=== PATIENT | female | born 1970 | race Caucasian/White ===

== ENCOUNTER 2017-10-30 19:09 | Emergency (ER) | payer OTHER ==
[~2017-10-30] VITALS: Ht 170.2 cm; Wt 110.2 kg
[~2017-10-30 19:09] MED LIST: ESCITALOPRAM OX10 MG PO; FISH OIL 1,0001 EAC1 PO; FISH OIL 1,0001 EAC3 PO; HUMALOG100 UNITS/; IBUPROFEN800 MG PO; LEVEMIR FL100 UNIT/1 SUB-Q; LEVEMIR FL100 UNIT/2 SUB-Q; LISINOPRIL10 MG PO; MAGNESIUM250 M1 PO; METFORMIN HCL1000 MG PO; NORCO 10-325 T1 EACH PO; NORCO 5-325 TA1 EACH PO; NOVOLOG FL100 UNIT/1 SUB-Q; OMEPRAZOLE20 MG PO; PREVACID15 M1; SIMVASTATIN40 MG PO; ULTRAM50 MG PO; ZOCOR20 MG
[2017-10-30] MEDS ORDERED: AFREZZA1 EAC1 (19:33)
== END 2017-10-30 21:31 | disposition home or self-care (01) ==
LOC: ED 19:09
DX: G43.909 Migraine, unspecified, not intractable, without status migrainosus (principal); E11.9 Type 2 diabetes mellitus without complications; Z88.0 Allergy status to penicillin; Z88.8 Allergy status to other drugs, medicaments and biological substances; Z79.899 Other long term (current) drug therapy; Z79.4 Long term (current) use of insulin
CPT/HCPCS: 96374; 96375; 99282; J1200; J1885; J7030

== ENCOUNTER 2023-05-28 05:24 | Inpatient (IN) | payer OTHER ==
[~2023-05-28] VITALS: Ht 170.2 cm; Wt 100.7 kg
[2023-05-28] VITALS (17 sets, daily range): BP systolic 115–152; BP diastolic 56–69
[~2023-05-28 05:24] MED LIST changes: +AFREZZA1 EAC1; -OMEPRAZOLE20 MG PO; +PRILOSEC OTC20 MG PO
[2023-05-28 05:49] LABS: BASOPHILS 1.2 % (0-2); EOSINOPHILS 0.4 % (0-6); HEMATOCRIT 43.1 % (35.0-50.0); HEMOGLOBIN 12.9 g/dL (12.0-18.0); LYMPHOCYTES 3.6 % (24-44); MCH 27.5 (27-36); MCV 91.8 fl (81-99); MONOCYTES 9.2 % (0-12); NEUTROPHILS 85.6 % (39-80); PLATELET COUNT 222 K/uL (140-440); RDW 17.5 (10.5-15.0)
[2023-05-28 05:53] LABS: BILIRUBIN, URINE POSITIVE (negative); BLOOD/HGB, URINE MODERATE (Negative); KETONE, URINE >=80 (Negative); LEUK ESTERASE, URINE NEGATIVE (negative); NITRITE, URINE NEGATIVE (negative); PH, URINE 5.5 (5-7)
[2023-05-28 06:01] LABS: ALBUMIN 2.5 g/dL (3.4-5.0); ALBUMIN/GLOBULIN RATIO 0.47 (1.1-2.4); ALCOHOL, MEDICAL <3 ng/dL (<3); ALKALINE PHOSPHATASE 127 U/L (46-116); ALT (SGPT) 21 U/L (14-59); AST (SGOT) 16 U/L (15-37); BILIRUBIN, TOTAL 0.7 ng/dL (0.2-1.0); BUN/CREATININE RATIO 28.94 (6.0-28.6); CALCIUM 9.6 mg/dL (8.5-10.1); CHLORIDE 95 mmol/L (98-107); GLOMERULAR FILTRATION RATE,EST 31 mL/min (>60); PROTEIN, TOTAL 7.8 g/dL (6.4-8.2); UREA NITROGEN 55 mg/dL (7-18)
[2023-05-28 06:05] LABS: EPITHELIAL CELLS, URINE SQUAMOUS 1+ /lpf (0-1+)
[2023-05-28 06:06] LABS: BACTERIA, URINE RARE /hpf (negative); CASTS, URINE GRANULAR 1+ \\lpf; CRYSTALS, URINE NONE SEEN (0-1+); RED BLOOD CELLS, URINE 0-1 /hpf (0-5); REFLEX CULTURE, URINE No (No); WHITE BLOOD CELLS, URINE 0-1 /HPF (0-5)
[2023-05-28 06:07] LABS: AMPHETAMINES, URINE NEGATIVE (NEGATIVE); BARBITURATES, URINE NEGATIVE (NEGATIVE); BENZODIAZEPINE, URINE NEGATIVE (NEGATIVE); BUPRENORPHINE, URINE NEGATIVE (NEGATIVE); CANNABINOID, URINE NEGATIVE (NEGATIVE); COCAINE, URINE NEGATIVE (NEGATIVE); ECSTASY, URINE NEGATIVE (NEGATIVE); FENTANYL, URINE NEGATIVE (NEGATIVE); METHADONE, URINE NEGATIVE (NEGATIVE); OPIATES, URINE NEGATIVE (NEGATIVE); OXYCODONE, URINE NEGATIVE (NEGATIVE); PHENCYCLIDINE, URINE NEGATIVE (NEGATIVE)
[2023-05-28 06:12] LABS: CARBON DIOXIDE <5 mmol/L (21-32)
[2023-05-28 07:20] LABS: BUN/CREATININE RATIO 29.83 (6.0-28.6); CREATININE, SERUM 1.81 mg/dL (0.55-1.02)
[2023-05-28 07:34] LABS: INFLUENZA B NAA NEGATIVE (NEGATIVE); RESPIRATORY SYNCYTIAL VIR NAA NEGATIVE (NEGATIVE)
[2023-05-28 09:36] LABS: BASE EXCESS, BLOOD GAS -24.6 mmol/L (-2-2); HCO3, BLOOD GAS 5.1 mmol/L (22-26); O2 SATURATION, BLOOD GAS 98.8 % (95.0-100.0); PCO2, BLOOD GAS 20.1 mmHg (35-45); PH, BLOOD GAS 7.01 (7.35-7.45); PO2, BLOOD GAS 101 mmHg (80-100); TOTAL CO2, BLOOD GAS 5.8
[2023-05-28 09:38] LABS: OXYGEN RECEIVED, BLOOD GAS RA
--- NOTE | 2023-05-28 10:19 | NUR ---
PATIENT ARRIVES AT 0902 FOR DKA. PT PULLED TO BED X3 PERSON ASSIST. PT'S SIGNIFICANT OTHER, ZARINA, ARRIVES WITH PATIENT. PATIENT ON INSULIN GTT AT 8.8 UPON ARRIVAL AND MOST RECENT CBG WAS 451. PT IS RESPONDING TO QUESTIONS. PATIENT STATES SHE IS THIRSTY. MOUTH SWAB GIVEN, AND THEN PATIENT WAS AWAKE ENOUGH TO DRINK KAYEXELATE. PT WAS SAT UP ALL THE WAY AND DID WELL WITH DRINKING THIS, WELL SOME WATER. DR. CANAS UPDATED. ABG DRAWN PER RT. PH STILL LOW, AT 7.[address] CANAS NOTIFIED OF THIS. ORDER REC'D TO START PATIENT ON A SODIUM BICARB GTT AT 125 ML/HR. PT WAS ALSO GIVEN 1 AMP OF SODIUM BICARB BY THIS RN. GALE DRAINING CLEAR YELLOW URINE. CBG AT 1010 WAS 509, AND INSULIN GTT TURNED UP TO 10.2. PLAN OF CARE DISCUSSED. PT ORIENTED TO ROOM AND CALL LIGHT. PT'S S/O LEAVES FOR NOW BUT STATES HE WILL RETURN LATER.
[2023-05-28 12:09] LABS: PH, VENOUS 7.141 (7.31-7.41)
[2023-05-28 12:25] LABS: ANION GAP 25.9 (7-21); BUN/CREATININE RATIO 32.05 (6.0-28.6); CALCIUM 9.1 mg/dL (8.5-10.1); CREATININE, SERUM 1.56 mg/dL (0.55-1.02); POTASSIUM 3.9 mmol/L (3.5-5.1)
--- NOTE | 2023-05-28 12:51 | NUR ---
PATIENT'S S/O BACK IN ROOM AT THIS TIME. INSULIN GTT REMAINS ON AT 9 UNITS/HR AND IVF AT 125 ML/HR. 1200 VBG AND BMP VALUES ARE BACK. DR. CANAS TO BE UPDATED.
--- NOTE | 2023-05-28 13:10 | NUR ---
CCU ROUNDS. PT IN BED WITH EYES CLOSED. APPEARED TO BE SLEEPING. DID NOT DISTURB. PROVIDED SILENT PRAYER.
--- NOTE | 2023-05-28 13:19 | NUR ---
CCU ROUNDS. MALE CHURCH HISTORY TEACHER IN ROOM. FACILITATED STORY TELLING. LISTENED EMPATHETICALLY. PROVIDED SUPPORTIVE PRESENCE. PROVIDED HOSPITALITY.
--- NOTE | 2023-05-28 13:30 | NUR ---
Spoke with Jose and her SO, Jose Zaragoza. Pt has a history of DM. She uses diabetic supplies, but does not need any. She does not use DME. They do not have financial issues. SO does the cooking,clean, shopping, and household tasks. They do not have financial issues and plan for dc to home when cleared medically. I will follow up tomorrow.
[2023-05-28] MEDS ORDERED: GLIPIZIDE ER10 MG PO (14:31)
[2023-05-28] MEDS ORDERED: METFORMIN HCL500 M1 PO (14:32)
--- NOTE | 2023-05-28 14:32 | NUR ---
PATIENT RESTING AT THIS TIME, EYES CLOSED AND APPEARS IN NO ACUTE DISTRESS. RR EVEN AND UNLABORED AT 25. HR 110 CURRENTLY. INSULIN GTT NOW AT 6.3 UNITS/HR. GALE EMPTIED FOR 775 ML YELLOW URINE. PT'S S/O YUMIKO ASLEEP ON COUCH. WILL CONTINUE TO MONITOR WITH HOURLY BLOOD SUGARS.
[2023-05-28] MEDS ORDERED: BASAGLAR K100 UNIT/1 SUB-Q (14:33)
[2023-05-28] MEDS ORDERED: HUMALOG KW200 UNIT/1 SUB-Q (14:33)
[2023-05-28 15:15] LABS: ANION GAP 23.4 (7-21); CALCIUM 8.7 mg/dL (8.5-10.1); CREATININE, SERUM 1.4 mg/dL (0.55-1.02); POTASSIUM 3.4 mmol/L (3.5-5.1)
--- NOTE | 2023-05-28 15:44 | NUR ---
DR. CANAS NOTIFIED OF POTASSIUM LEVEL OF 3.4 AND IV POTASSIUM ORDERED FOR REPLACMENT. WILL START SOON POSSIBLE.
--- NOTE | 2023-05-28 16:44 | EKG ---
[facility] [address] [place] [address] Signed Sinus tachycardia Otherwise normal ECG When compared with ECG of 08-NOV-2016 14:37, Nonspecific T wave abnormality now evident in Inferior leads Confirmed by SISI CANAS MD ([id number]) on 05/28/2023 4:44:34 PM Electronically Signed By: SISI CANAS 05/28/23 1644 PATIENT NAME: BRENDAN COSTA MACY Electrocardiogram DATE OF : 70 PHYSICIAN: SISI CANAS REPORT #: [id number] REPORT IS CONFIDENTIAL AND NOT TO BE RELEASED WITHOUT AUTHORIZATION
--- NOTE | 2023-05-28 18:41 | NUR ---
DR. GRANADOS IN ROOM TO SEE PATIENT AT THIS TIME. PT REMAINS ON INSULIN GTT AT 10.5 UNITS/HR.
[2023-05-28 19:16] LABS: ANION GAP 19.1 (7-21); BUN/CREATININE RATIO 32.35 (6.0-28.6); CALCIUM 8.7 mg/dL (8.5-10.1); CREATININE, SERUM 1.36 mg/dL (0.55-1.02); POTASSIUM 3.1 mmol/L (3.5-5.1)
--- NOTE | 2023-05-28 19:30 | NUR ---
REPORT RECEIVED AND CARE ASSUMED FROM LUIS MEEHAN.
--- NOTE | 2023-05-28 20:00 | NUR ---
DR CANAS NOTIFIED FOR PT LAB RESULTS FOR CO2, ANION GAP, AND POTASSIUM. VERBAL ORDERS RECEIVED, READ BACK AND ENTERED.
--- NOTE | 2023-05-28 20:00 | NUR ---
SHIFT ASSESSMENT COMPLETE. SEE [email or web address] FOR DETAILS. PT RESTING IN BED, AWAKENED TO VOICE. PT DENIES NEEDS. INSULIN AND BICARB GTT'S INFUSING PER MD ORDER. K+ REPLACEMENT INFUSING PER ORDER. GALE PATENT AND DRAINING. VSS AND NAD NOTED VIA DIRECT OBS, PT STATEMENT AND CONTINUOUS MONITOR.
--- NOTE | 2023-05-28 20:41 | NUR ---
DR CANAS AT BEDSIDE FOR PT ASSESSMENT.
--- NOTE | 2023-05-28 22:20 | NUR ---
PT RESTING IN BED, DROWSY BUT AWAKENS TO NAME. PT DENIES PAIN OR NEEDS AT THIS TIME. Q1 CBG'S WITH APPROPRIATE INSULIN GTT TITRATION PER PROTOCOL COMPLETED. GALE CATHETER PATENT AND DRAINING. BED IN LOW, LOCKED POSITION. CALL LIGHT IN REACH. NAD NOTED VIA PT STATEMENT AND DIRECT PT OBS.
[2023-05-28 23:32] LABS: ANION GAP 18.2 (7-21); BUN/CREATININE RATIO 31.49 (6.0-28.6); CALCIUM 8.8 mg/dL (8.5-10.1); CREATININE, SERUM 1.27 mg/dL (0.55-1.02); POTASSIUM 3.2 mmol/L (3.5-5.1)
--- NOTE | 2023-05-28 23:38 | NUR ---
DR CANAS NOTIFIED FOR PT K+ RESULT OF 3.2 PER HIS REQUEST.
[2023-05-29] VITALS (16 sets, daily range): BP systolic 130–161; BP diastolic 51–81
--- NOTE | 2023-05-29 00:20 | NUR ---
SHIFT ASSESSMENT COMPLETE. SEE [facility] FOR DETAILS. PT REMAINS DROWSY. DENIES NEEDS. DKA PROTOCOL IN PLACE WITH INSULIN GTT INFUSING. BICARB GTT AND K+ REPLACEMENT INFUSING PER EMAR. BED IN LOW, LOCKED POSITION WITH CALL LIGHT IN REACH. PT ORAL TEMP 99.6, INFECTION TO L FOOT PRESENT. L FOOT DRSG PLACED BY DR DARWIN RAMOS. NAD NOTED VIA DIRECT OBS AND CONTINUAL MONITOR.
--- NOTE | 2023-05-29 02:00 | NUR ---
PT RESTING IN BED, REMAINS DROWSY. LINES/DRAINS PATENT. INSULIN GTT INFUSING PER PROTOCOL WITH Q1 CBG IN PROCESS. NAD DISTRESS NOTD VIA DIRECT OBS AND CONTINUOUS MONITOR.
--- NOTE | 2023-05-29 04:18 | NUR ---
SHIFT ASSESSMENT COMPLETE SEE [facility]. NO PT CHANGES DURING SHIF, PT DENIES PAIN AND NEEDS AT THIS TIME. L FOOT DRSG CDI. NAD NOTED VIA DIRECT OBS AND CONTINUOUS MONITOR.
[2023-05-29 05:41] LABS: HEMATOCRIT 32.8 % (35.0-50.0); HEMOGLOBIN 11.2 g/dL (12.0-18.0); MCH 27.5 (27-36); MCHC 34.1 g/dl (30-36); MCV 80.7 fl (81-99); PLATELET COUNT 174 K/uL (140-440); RBC 4.07 M/ul (4.3-5.7); RDW 15.7 (10.5-15.0)
[2023-05-29 05:54] LABS: BANDS, MANUAL DIFF 34; LYMPHOCYTES, MANUAL DIFF 16; MONOCYTES, MANUAL DIFF 3; NEUTROPHILS, MANUAL DIFF 47
[2023-05-29 05:59] LABS: ALBUMIN 1.2 g/dL (3.4-5.0); ALBUMIN/GLOBULIN RATIO 0.24 (1.1-2.4); ANION GAP 16.9 (7-21); BILIRUBIN, TOTAL 0.4 ng/dL (0.2-1.0); BUN/CREATININE RATIO 29.41 (6.0-28.6); CALCIUM 8.3 mg/dL (8.5-10.1); CREATININE, SERUM 1.19 mg/dL (0.55-1.02); POTASSIUM 2.9 mmol/L (3.5-5.1); PROTEIN, TOTAL 6.1 g/dL (6.4-8.2)
--- NOTE | 2023-05-29 06:12 | NUR ---
PT REMAINS DROWSY. ANSWERS TO VOICE. PT DENIES NEEDS. GALE CATHETER PATENT AND DRAINING. PIV PATENT WITH INSULIN GTT INFUSING PER PROTOCOL. BED IN LOW, LOCKED POSITION. PT DENIES NEEDS. NAD NOTED VIA CONTINUOUS MONITOR AND DIRECT OBS.
--- NOTE | 2023-05-29 06:27 | NUR ---
DR CANAS NOTIFIED FOR PT K+ OF 2.9. TELEPHONE ORDERS RECEIVED, READ BACK AND ENTERED INTO bContext.
--- NOTE | 2023-05-29 07:24 | NUR ---
report from Vandana rn, pt quiet, resp 22, call light in reach, dr willoughby here at this time.
--- NOTE | 2023-05-29 08:46 | NUR ---
in for assessment and meds, stopped iv insulin now q2 hr checks next at 10 am. iv 1/2 ns@125, pt is very sleepy/somulent, rn opened curtains and tried to wake pt she keeps eyes closed and will eventually open with strong encouragement yet closes. when asked her birthday she states yes, not the date, repeatedly, pt does not know where she is or why she is here, slow to answer if at all. in room - she does not answer him either. repositioned pt. helped to wake her more. call light in reach.
--- NOTE | 2023-05-29 09:00 | NUR ---
DR CANAS IN ROOM WITH RN AND PT NEW ORDERS FOR LABS TODAY AND AM, ENC PT TO WAKE AND PARTICIPATE. AWARE OF PT FLAT AFFECT AND RECENT BS. 156. NEXT BS AT 10 AM.
--- NOTE | 2023-05-29 10:15 | NUR ---
Attempted to speak with Jose. She opens her eyes but does not respond at this time.
--- NOTE | 2023-05-29 11:07 | NUR ---
CCU ROUNDS. PT APPEARED TO BE SLEEPING. DID NOT DISTURB. PROVIDED SILENT PRYAER.
[2023-05-29] MEDS ORDERED: PREGABALIN75 MG PO (12:03)
[2023-05-29] MEDS ORDERED: ESCITALOPRAM OX10 MG PO (12:04)
[2023-05-29] MEDS ORDERED: ATORVASTATIN CA40 MG PO (12:04)
--- NOTE | 2023-05-29 12:54 | NUR ---
PATIENT AWAKE IN BED, FAMILY AT BEDSIDE AND ASSISTING WITH LUNCH. VITALS AND I&OS CHARTED. RN NOTIFIED OF TEMP. CALL LIGHT IN EASY REACH, NO OTHER NEEDS AT THIS TIME
--- NOTE | 2023-05-29 12:55 | NUR ---
PT HERE RN GAVE UPDATE, PT HOB UP FOR MEAL, PT HAS 100.3 AXILARRY TEMP - WILL RECHECK AFTER REPOSTITION, CALL TO DR CANAS TO DISCUSS TREND IN BS INCREASE - NEW ORDER FOR LANTUS NOW TAKEN - RECHECK AX TEMP 98.4, IN ROOM.
--- NOTE | 2023-05-29 14:30 | NUR ---
dr willoughby here notified of positive bc x1 iv abx ordered. labs checked.
[2023-05-29 15:02] LABS: ANION GAP 18.1 (7-21); BUN/CREATININE RATIO 25.64 (6.0-28.6); CALCIUM 8.2 mg/dL (8.5-10.1); CREATININE, SERUM 1.17 mg/dL (0.55-1.02); POTASSIUM 3.1 mmol/L (3.5-5.1)
--- NOTE | 2023-05-29 15:23 | NUR ---
RN SPOKE WITH DR CANAS ABOUT HOME MED FOR PAIN AND DEPRESSION - RESTARTED NEW ORDER PER MED LIST FROM PCP AND DR CANAS VO.
--- NOTE | 2023-05-29 16:15 | NUR ---
pt continues to be somulent, when aroused will open eyes briefly - will not squeeze hand or state name. turned to left side, repositioned, abx started, ceja draining clear yellow urine, bs checked 325 - insulin given.
--- NOTE | 2023-05-29 16:22 | NUR ---
dr westbrook here for left foot dressing change - pt continues to be somunlent
--- NOTE | 2023-05-29 18:33 | NUR ---
DR CANAS HERE - RN ADDRESSED CONCERNS WITH LABS, AND PT SOMULENCE, NEW ORDERS ENTERED BY RN, INSULIN WILL BE RESTARTED. COVID SWAB DRAWN BY RT - ADD ON MG AND PHOS LABS, RT WILL PLACE END TIDAL CO2 MONITOR - PT CONT. TO BE SOMULENT AND ONLY OPENS EYES. NOT RESPONSIVE AND NPO.
[2023-05-29 18:44] LABS: MAGNESIUM 2.1 mg/dL (1.8-2.4)
[2023-05-29 18:46] LABS: PHOSPHORUS, INORGANIC 1.1 mg/dL (2.5-4.9)
[2023-05-29 18:55] LABS: BASE EXCESS, BLOOD GAS -2.7 mmol/L (-2-2); HCO3, BLOOD GAS 19.9 mmol/L (22-26); O2 SATURATION, BLOOD GAS 97.3 % (95.0-100.0); PCO2, BLOOD GAS 27.4 mmHg (35-45); PH, BLOOD GAS 7.47 (7.35-7.45); PO2, BLOOD GAS 69 mmHg (80-100); TOTAL CO2, BLOOD GAS 20.7
--- NOTE | 2023-05-29 19:04 | NUR ---
COVID SWAB COLLECTED SENT TO THE LAB
[2023-05-29 19:34] LABS: INFLUENZA B NAA NEGATIVE (NEGATIVE); RESPIRATORY SYNCYTIAL VIR NAA NEGATIVE (NEGATIVE)
--- NOTE | 2023-05-29 19:50 | NUR ---
DR CANAS HERE - UPDATE ON PT LABS, CONT.INSULIN DRIP ON, DIETITIAN THERAPEUTIC CALLED TO MIX K PHOS. SEE ORDERS - PT CONTINUES TO BE SOMULENT. NO CHANGE.
--- NOTE | 2023-05-29 20:00 | NUR ---
SBAR REPORT RECEIVED FROM LUIS JOHNSON. PATIENT IGOR IS FOUND TO BE DROWSY, ABLE TO ANSWER SIMPLE YES/NO QUESTIONS APPROPRIATELY, OPENS EYES TO COMMAND, INDWELLING GALE CATHETER REMAINS PATENT AND INTACT. INSULIN GTT REMAINS IN USE. 1HR CBG CHECKS UNTIL PATIENT REACHES 200. AT THAT POINT SHE WILL TRANSITION TO Q2. IF SHE REMAINS STABLE AND UNDER 200 SHE WILL BE TRANSITIONED TO Q4 IN THE AM FOR DAY SHIFT. ROUNDS WITH MD CANAS COMPLETE. NO FURTHER NEEDS AT THIS TIME
--- NOTE | 2023-05-29 22:45 | NUR ---
DR CANAS NOTIFIED FOR PT SBP INCREASING BP. ORDERS RECEIVED, READ BACK AND ENTERED INTO Preggers.
[2023-05-29 23:48] LABS: ANION GAP 14.7 (7-21); CREATININE, SERUM 0.92 mg/dL (0.55-1.02); POTASSIUM 2.7 mmol/L (3.5-5.1)
[2023-05-29 23:49] LABS: PHOSPHORUS, INORGANIC 1.1 mg/dL (2.5-4.9)
[2023-05-30] VITALS (21 sets, daily range): BP systolic 119–157; BP diastolic 49–99
--- NOTE | 2023-05-30 01:18 | NUR ---
PATIENT IGOR IS NOTED TO BE DROWSY. ABLE TO ANSWER QUESTIONS MORE FREQUENTLY AND TAKE PO MEDICATIONS. INDWELLING GALE CATHETER REMAINS PATENT AND INTACT. INSULIN GTT REMAINS IN USE. SHE DENIES ANY NEEDS OR DESIRES AT THIS MOMENT. WARM BLANKETS, REPOSITION, AND FRESH LINENS PROVIDED.
--- NOTE | 2023-05-30 03:33 | NUR ---
PATIENT IGOR IS LYING ON LEFT SIDE. INDEPENDENT MOBILITY. INDWELLING GALE CATHETER PATENT AND IN USE. INSULIN GTT IN USE.
--- NOTE | 2023-05-30 04:08 | NUR ---
CURRENT CBG 188. PER VERBAL ORDERS D5 0.45NS IMITIATED AT 125CC PER HR. INSULIN GTT AT 5.6UNITS PER HR. WILL RECHECK AT 0600. KPHOS GTT STILL BEING ADMINISTERED. PATIENT IGOR IS SPEAKING IN FULL SENTENCES AND IS ABLE TO EXPRESS DESIRES AND NEEDS. H20 PROVIDED. SAFETY CHECK PERFORMED. VSS AND WDL PER MONITOR.
--- NOTE | 2023-05-30 05:36 | NUR ---
PATIENT BRENDAN IS NOTED TO BE MORE AWAKE AND EXPRESSIVE DURING THE COURSE OF THIS SHIFT. SHE IS ORIENTED TO PLACE AND SELF. BRENDAN HAS BEEN ABLE TO EXPRESS HER NEEDS AND WANTS. NEURO- ALERT TO SELF AND PLACE. ABLE TO MOVE ALL EXTREMITIES. DENIES ANY PAIN. MULTIPLE NEEDS EXPRESSED INCLUDING BUT NOT LIMITED TO H20, WARM BLANKETS, EXTRA PILLOWS, AND CHANGING OF THE TV CHANNEL CARDIAC- HTN, EDEMA NOTED IN LOWER EXTREMITES, FEBRILE TMAX 100.4 RESP- RA, O2 SATS MAINTAINED ABOVE 95%, BREATH SOUNDS CLEAR. ABLE TO COUGH AND DEEP BREATH GI/- INSULIN GTT REMAINS ON. SEE FLOWSHEET FOR MORE DETAILS. INDWELLING GALE CATHETER REMAINS PATENT AND INTACT. ADEQUATE URINE OUTPUT INT- SEE ASSESSMENT
[2023-05-30 05:53] LABS: BASOPHILS 0.4 % (0-2); EOSINOPHILS 0.1 % (0-6); HEMATOCRIT 32.6 % (35.0-50.0); HEMOGLOBIN 10.8 g/dL (12.0-18.0); LYMPHOCYTES 13.9 % (24-44); MCV 81.7 fl (81-99); MONOCYTES 6.6 % (0-12); PLATELET COUNT 175 K/uL (140-440); RBC 3.99 M/ul (4.3-5.7); RDW 15.3 (10.5-15.0)
[2023-05-30 05:56] LABS: ANION GAP 14.8 (7-21); BUN/CREATININE RATIO 24.13 (6.0-28.6); CALCIUM 8.2 mg/dL (8.5-10.1); CREATININE, SERUM 0.87 mg/dL (0.55-1.02); POTASSIUM 2.8 mmol/L (3.5-5.1)
--- NOTE | 2023-05-30 06:17 | NUR ---
IV K+ phos hung, ceja drained, diet soda given at pt request. Pt watching Tv with HOB inclined. Resp even and unlabored. no further requests at this time.
--- NOTE | 2023-05-30 07:34 | NUR ---
REPORT FROM DARWIN RN, PT RESTING IN BED EYES CLOSED, K PHOS FUSING IN IV, HR 99, 98% RA SATS, CALL LIGHT IN REACH. RN TO PLACE ORDER FOR LABS AFTER KRISH GLUCONATE IS FINISHED INFUSING PER REPORT. TRAINING ASSOCIATE REPORTS AFTER ORAL SSRI PT STARTED TO COME AROUND AND MENTAL STATUS IMPROVED, PT STARTED COMMUNICATING AND TAKING ORAL.
--- NOTE | 2023-05-30 08:22 | NUR ---
in pt room for bs check 220, dr willoughby with rn - alert, awake and talking - does not remember rn from yesterday. can answer birthday and other questions of orientation appropriatly- call light in reach.
--- NOTE | 2023-05-30 09:10 | NUR ---
THERAPY IN ROOM TO SEE PT, SHE IS ALERT AND AWAKE. IV FUSING X2.
--- NOTE | 2023-05-30 09:55 | NUR ---
pt pivot trsf from bed to bsc with right toe touch weight bearing and 2 person assist after she was inc. of stool. ceja care done, bed bath and hair wash cap completed, linen change on bed, pt then trsf same way to chair. room air, alert and oriented.
--- NOTE | 2023-05-30 10:21 | NUR ---
pt up in chair - rn taught pt to use resp trupet device to exercise lungs. pt demonstrates well, call light in reach. while pt was standing for previous jorge care - 2 rn check with alfonso transportation supervisor for purple blanchable intact skin noted, cleaned and covered with barier cream - enc pt to move side to side to relive pressure- area is on top of but cheeks in a difficult area to cover with allyvn. no camera was available at this time - transportation supervisor attempted to locate.
--- NOTE | 2023-05-30 10:59 | NUR ---
CCU ROUNDS. PT APPEARED TO BE SLEEPING. DID NOT AWAKEN. PROVIDED SILENT PRAYER.
--- NOTE | 2023-05-30 11:30 | NUR ---
Spoke with Jose. She is awake today. She is not at baseline, but is able to answer questions. Pt denies needs and plans on dc to home when she is cleared medically. 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 SO in the and states he has brought her boot in.
--- NOTE | 2023-05-30 11:37 | NUR ---
MED REC COMPLETE
--- NOTE | 2023-05-30 12:15 | NUR ---
pt up in chair, alert and oriented -eating and talking on phone.
--- NOTE | 2023-05-30 13:41 | NUR ---
LAB IN FOR BLOOD DRAW, PT ALERT AND ORIENTED. CALL LIGHT IN REACH - RN TALKED TO DR CANAS - [employer] FOR LONG ACTING INSULIN.
--- NOTE | 2023-05-30 14:05 | NUR ---
UR NOTE [facility] DIABETES (ISC) INPATIENT 05/28/23 MET CLINICAL INDICATIONS FOR ADMISSION TO INPATIENT CARE GL DAY 1
[2023-05-30 14:10] LABS: ANION GAP 15.2 (7-21); BUN/CREATININE RATIO 27.71 (6.0-28.6); CALCIUM 8.2 mg/dL (8.5-10.1); CREATININE, SERUM 0.83 mg/dL (0.55-1.02); POTASSIUM 3.2 mmol/L (3.5-5.1)
[2023-05-30 14:14] LABS: MAGNESIUM 1.7 mg/dL (1.8-2.4); PHOSPHORUS, INORGANIC 2.8 mg/dL (2.5-4.9)
--- NOTE | 2023-05-30 16:26 | NUR ---
rn updated dr willoughby on pt status and labs. new orders for 40 meq kcl, and 2 gm of mg. family in room visiting pt.
--- NOTE | 2023-05-30 17:35 | NUR ---
DR CANAS ON UNIT - AWARE OF UPDATES, PT DENIES NEEDS.
--- NOTE | 2023-05-30 18:30 | NUR ---
550 ml urine out of ceja and then it was dc by this rn. iv is SL, except for kcl infusion. pt ate dinner well. pt continues to be alert and oriented. call light in reach.
--- NOTE | 2023-05-30 20:00 | NUR ---
SBAR REPORT RECEIVED FROM LUIS JOHNSON. PATIENT IGOR IS FOUND TO BE RESTING COMFORTABLY AND WATCHING TV. BED MORRISON PLACED SAFETY CHECK PERFORMED, PM CARE PROVIDED. COMPLETE LINEN CHANGE AND GOWN CHANGE.
--- NOTE | 2023-05-30 23:06 | NUR ---
VOID IN BED MORRISON. URINE IS NOTED TO BE FOUL SMELLING AND CLOUDY. WILL SEND DOWN A U/A.
--- NOTE | 2023-05-30 23:34 | NUR ---
PATIENT IGOR IS NOTED TO BE RESTING COMFORTABLY WITH EYES CLOSED. VSS AND WDL PER MONITOR. 4HR ABX INFUSION CURRENTLY BEING ADMINISTERED. DENIES ANY NEEDS AT CURRENT MOMENT
[2023-05-31] VITALS (10 sets, daily range): BP systolic 118–154; BP diastolic 53–110
[2023-05-31 05:45] LABS: BASOPHILS 0.5 % (0-2); EOSINOPHILS 0.3 % (0-6); HEMATOCRIT 30.6 % (35.0-50.0); HEMOGLOBIN 10.1 g/dL (12.0-18.0); LYMPHOCYTES 12.3 % (24-44); MCHC 32.8 g/dl (30-36); MCV 82.2 fl (81-99); MONOCYTES 6.9 % (0-12); PLATELET COUNT 186 K/uL (140-440); RBC 3.73 M/ul (4.3-5.7); RDW 15.2 (10.5-15.0)
[2023-05-31 05:59] LABS: ANION GAP 16.4 (7-21); BUN/CREATININE RATIO 20.63 (6.0-28.6); CALCIUM 7.8 mg/dL (8.5-10.1); CREATININE, SERUM 0.63 mg/dL (0.55-1.02); MAGNESIUM 2.1 mg/dL (1.8-2.4); POTASSIUM 3.4 mmol/L (3.5-5.1)
--- NOTE | 2023-05-31 06:25 | NUR ---
PATIENT IGOR HAD A PLEASANT AND RESTFUL EVENING. MENTATION CONTINUES TO IMPROVE AND SHE IS ABLE TO EXPRESS ALL NEEDS AND DESIRES. NEURO- ALERT AND ORIENTED X 4, ABLE TO MOVE ALL EXTREMITIES, 5/4 STRENTH, DENIES PAIN, PERRL CARDIAC- SR, NORMOTENSIVE, TMAX 100.4 SELF RESOLVED CURRENTLY 99.0, GENERALIZED EDEMA RESP- ROOM AIR, O2 SATS MAINTAINED ABOVE 95% GI/- VOIDS IN BEDPAN, MALODOROUS URINE INT- BLANCHABLE REDNESS ON COCCYX- ALEVEN PLACED
--- NOTE | 2023-05-31 07:19 | NUR ---
PT REQUESTING MEDICATION FOR NASAL CONGESTION. PT ASSIST WITH BEDPAN WITHOUT INCIDENT.
--- NOTE | 2023-05-31 09:37 | NUR ---
AM ASSESSMENT COMPLETE. PT RESTING IN BED WITH S/O ZARINA AT BEDSIDE. DR. CANAS HAS BEEN IN TWICE THIS AM TO SEE PATIENT AND DISCUSS PLAN OF CARE. PATIENT WILL TRANSFER TO MEDICAL FLOOR TODAY WITH LIKELY D/C HOME TOMORROW. PT EAGER TO GO HOME, BUT WANTING TO WORK WITH PHYS THERAPY FIRST TO ENSURE SHE IS STRONG ENOUGHT TO [facility]. PT PLACED ON BEDPAN THIS AM AND BACK SIDE ASSESSED. PT C/O SORENESS TO HER COCCYX AREA WHICH IS COVERED BY ALLEVYN. 20 UNITS LANTUS GIVEN THIS AM AND WILL INCREASE TO 25 BID. PT ABLE TO EAT BREAKFAST. PT ALSO C/O PAIN IN HER BACK FROM LAYING IN BED. WILL WORK ON MOBILIZING PATIENT MORE TODAY. PT DOES NOT RECALL EVENTS OVER LAST COUPLE OF DAYS, EVER SINCE PARAMEDICS PICKED HER UP AT HER HOUSE. DIABETIC EDUCATION PROVIDED. PT'S URINE REMAINS FOUL SMELLING. LEFT FOOT WOUND IS WRAPPED PER DR. GRANADOS AND WILL LIKELY STAY WRAPPED FOR A COUPLE OF DAYS. WILL CONTINUE TO [facility].
--- NOTE | 2023-05-31 13:53 | NUR ---
PATIENT RESTING IN CHAIR AT THIS TIME AFTER EATING LUNCH. SIGNIFICANT OTHER ZARINA HAS COME AND LEFT AGAIN, TAKING HOME HER BLUE BLANKET TO WASH. WILL CONTINUE TO MONITOR.
--- NOTE | 2023-05-31 14:48 | NUR ---
PATIENT RESTING IN CHAIR AND CURRENTLY APPEARS ASLEEP. PT ASKED FOR A WARM BLANKET EARLIER, WELL A CUP OF COFFEE. PT EXPRESSES INTEREST IN WALKING IN HALLS A LITTLE BIT LATER. WILL CONTINUE TO MONITOR.
--- NOTE | 2023-05-31 15:29 | NUR ---
PATIENT UP TO BATHROOM TO VOID. BATH GIVEN, NEW GOWN PROVIDED. PATIENT THEN AMBULATES IN CCU CONTEH WITH FWW, TOLERATING WELL. PT BECOMING STRONGER ON FEET. PT ANXIOUS TO D/C HOME TOMORROW.
--- NOTE | 2023-05-31 18:35 | NUR ---
MICRO REPORT REC'D - IN AEROBIC BOTTLE FROM WOUND CULTURE WHICH WAS DONE ON 05/28/23 AT 1850, GRAM NEGATIVE RODS AND GRAM NEGATIVE BACILLI ON REPORT. DR. CANAS AND DR. GRANADOS BOTH CALLED BY THIS RN TO UPDATE ON THESE FINDINGS. DR. CANAS ALSO NOTIFIED OF CONTINUED ELEVATED BLOOD SUGARS, DESPITE THE INCREASE IN BID LANTUS DOSE- NEW ORDER REC'D TO INCREASE TO 30 UNITS BID. PATIENT SITTING UP IN CHAIR AND HAS FINISHED HER DINNER. S/O ZARINA IN ROOM. WILL CONTINUE TO MONITOR.
--- NOTE | 2023-05-31 19:35 | NUR ---
SBAR REPORT RECEIVED FROM LUIS CAZARES. PATIENT BRENDAN IS NOTED TO BE RESTING COMFORTABLY AND WATCHING TV. PARTNER ZARINA RECENTLY LEFT FOR THE EVENING. SHE DENIES ANY NEEDS OR DESIRES AT THIS TIME. VSS AND WDL PER MONITOR. SAFETY CHECK PERFORMED. BED IN LOWEST POSITION, REMOTE ON BED, AND PERSONAL BELONGINGS ON BEDSIDE TABLE.
--- NOTE | 2023-05-31 21:34 | NUR ---
2P ASSIST TO COMMODE WITH FWW. 300CC OF YELLOW URINE WITH SEDIMENT. PATIENT IGOR WAS PROVIDED WITH PM MEDICATIONS AND PM CARE. SHE WAS SAFELY TAKEN BACK TO BED AND PROVIDED AND WARM BLANKET AND DIET CRANBERRY JUICE. NO OTHER NEEDS AT THIS TIME.
--- NOTE | 2023-06-01 00:25 | NUR ---
PATIENT IGOR REPORTED RESTROOM NEEDS. 1P ASSIST UP TO COMMODE WITH FWW WITHOUT INCIDENT. SHE WAS ABLE TO PERFORM HYGIENIC NEEDS WITH MINIMAL ASSIST. BACK TO BE, WARM BLANKET PROVIDED, STATES COMFORTABLE AND DENIES ANY ADDITIONAL NEEDS. SAFETY CHECK PERFORMED.
[2023-06-01 04:00] VITALS: BP 120/74
--- NOTE | 2023-06-01 04:58 | NUR ---
PATIENT IGOR REPORTED RESTROOM NEEDS. 1P ASSIST TO COMMODE WITH FWW. BACK TO BED WITH MINIMAL DIFFUCULTY. SHE STATED THAT "THIS IS MUCH EASIER". VSS AND WDL PER MONITOR.
--- NOTE | 2023-06-01 05:38 | NUR ---
PATIENT IGRO HAD A PLEASANT EVENING. SHE WAS NOTED TO BE RESTING WITH EYES CLOSED MOST OF THE EVENING. UP TO COMMODE WHEN NEEDS TO VOID WOULD ARISE. SHE IS LOOKING FORWARD TO BEING DISCHARGED HOME TODAY PER PLAN. NEURO- ALERT AND ORIENTED X 4. MOVES ALL EXTREMITIES, 5/4 STRENTH. FWW WITH AMBULATION, PERRL CARDIAC- GENERALIZED EDEMA, AFEBRILE RESP- ROOM AIR GI/- VOIDS ADEQUATE AMOUNTS OF URINE, NO BOWEL MOVEMENT, ADEQUATE LIQUID INTAKE INT- NO CHANGES, SEE ASSESSMENT
[2023-06-01 05:59] LABS: BASOPHILS 0.5 % (0-2); EOSINOPHILS 0.9 % (0-6); HEMATOCRIT 29.5 % (35.0-50.0); HEMOGLOBIN 9.9 g/dL (12.0-18.0); LYMPHOCYTES 17.1 % (24-44); MCH 27.3 (27-36); MCHC 33.4 g/dl (30-36); MCV 81.8 fl (81-99); MONOCYTES 11.2 % (0-12); NEUTROPHILS 70.3 % (39-80); PLATELET COUNT 240 K/uL (140-440); RBC 3.61 M/ul (4.3-5.7); RDW 15.3 (10.5-15.0)
[2023-06-01 06:28] LABS: ALBUMIN 1.3 g/dL (3.4-5.0); ALBUMIN/GLOBULIN RATIO 0.3 (1.1-2.4); ANION GAP 12.8 (7-21); BILIRUBIN, TOTAL 0.4 ng/dL (0.2-1.0); BUN/CREATININE RATIO 19.04 (6.0-28.6); CALCIUM 7.8 mg/dL (8.5-10.1); CREATININE, SERUM 0.63 mg/dL (0.55-1.02); POTASSIUM 2.8 mmol/L (3.5-5.1); PROTEIN, TOTAL 5.6 g/dL (6.4-8.2)
[2023-06-01 07:53] VITALS: BP 150/76
[2023-06-01 08:03] VITALS: BP 150/76
--- NOTE | 2023-06-01 08:21 | NUR ---
PATIENT ASSESSMENT COMPLETE. HELPED PATIENT UP TO BSC TO VOID BEFORE BREAKFAST. PT GIVEN AM MEDS, AND CBG THIS AM WAS 189, ONE OF THE LOWEST SHE HAS HAD WHILE HOSPITALIZED. PT RATES PAIN 1/10 IN BACK RELATED TO LAYING IN HOSPITAL BED. PLAN IS FOR PATIENT TO D/C HOME TODAY AFTER 1000 LAB DRAW TO ENSURE POTASSIUM LEVEL IS IMPROVED - 2.8 THIS AM ON LABS. PT TAKING ORAL POTASSIUM REPLACEMENT WITHOUT PROBLEM. DENIES FURTHER NEEDS.
[2023-06-01] MEDS ORDERED: LEVOFLOXACIN750 MG PO (09:22)
[2023-06-01] MEDS ORDERED: LYRICA75 MG PO (09:23)
[2023-06-01 10:22] LABS: ANION GAP 13.6 (7-21); BUN/CREATININE RATIO 16.39 (6.0-28.6); CALCIUM 7.8 mg/dL (8.5-10.1); CREATININE, SERUM 0.61 mg/dL (0.55-1.02); POTASSIUM 3.6 mmol/L (3.5-5.1)
[2023-06-01] MEDS ORDERED: BASAGLAR K100 UNIT/1 SUB-Q (10:32)
[2023-06-01] MEDS ORDERED: PREGABALIN75 MG PO (10:35)
[2023-06-01] MEDS ORDERED: POTASSIUM CHLO20 ME1 PO (11:32)
== END 2023-06-01 11:58 | disposition home or self-care (01) | DRG 638 ==
LOC: ED 05:24 → CCU 08:02
PROVIDERS: Emergency Medicine; ADMIT Internal Medicine; ATTEND Internal Medicine
PROC: 0HBNXZZ Excision of Left Foot Skin, External Approach (ICD-10-PCS; principal; 2023-05-28)
DX: E11.10 Type 2 diabetes mellitus with ketoacidosis without coma (principal); L97.423 Non-pressure chronic ulcer of left heel and midfoot with necrosis of muscle; T38.3X6A Underdosing of insulin and oral hypoglycemic [antidiabetic] drugs, initial encounter; G43.909 Migraine, unspecified, not intractable, without status migrainosus; E11.610 Type 2 diabetes mellitus with diabetic neuropathic arthropathy; Z91.138 Patient's unintentional underdosing of medication regimen for other reason; Z88.0 Allergy status to penicillin; Z88.8 Allergy status to other drugs, medicaments and biological substances; Z87.891 Personal history of nicotine dependence; Z79.4 Long term (current) use of insulin; Z11.52 Encounter for screening for COVID-19; E11.621 Type 2 diabetes mellitus with foot ulcer
CPT/HCPCS: 36415; 36600; 70450; 71045; 73630; 74176; 80048; 80053; 80307; 81001; 82010; 82800; 82803; 83036; 83605; 83735; 84100; 84484; 85025; 85060; 85651; 86140; 86850; 86900; 86901; 86922; 87040; 87070; 87075; 87205; 87502; 90715; 93005; 93010; 97116; 97162; 97166; 97530; 97535; A9270; C9803; G0480; J0692; J0878; J1650; J1815; J2185; J3475; J3480; J3490; J7030; J7040; J7042; J7060; J7121; U0002

== ENCOUNTER 2023-06-26 14:07 | Inpatient (IN) | payer OTHER ==
[~2023-06-26] VITALS: Ht 170.2 cm; Wt 109.4 kg
[~2023-06-26 14:07] MED LIST changes: +ATORVASTATIN CA40 MG PO; +BASAGLAR K100 UNIT/1 SUB-Q; +GLIPIZIDE ER10 MG PO; +HUMALOG KW200 UNIT/1 SUB-Q; +LEVOFLOXACIN750 MG PO; +LYRICA75 MG PO; +METFORMIN HCL500 M1 PO; +POTASSIUM CHLO20 ME1 PO; +PREGABALIN75 MG PO
--- OUTSIDE RECORDS SUMMARY | 2023-06-26 14:16 | XMS ---
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 Milad has no Care Guidelines for this patient. Chastity VISIT COUNT (12 MO.) 2 [facility] [place] [facility] TOTAL 2 NOTE: Visits indicate total known visits. ED/C VISIT TRACKING (12 MO.) 06/26/2023 14:08 [facility] [place] TYPE: Emergency COMPLAINT: - R FOOT WOUND 05/28/2023 05:25 [facility] [place] TYPE: Emergency COMPLAINT: - POSS BLOOD PRESSURE PROBLEM INPATIENT VISIT TRACKING (12 MO.) 05/28/2023 08:02 [facility] [place] TYPE: Critical Care COMPLAINT: - DKA DIAGNOSES: - Allergy status to other drugs, medicaments and biological substances - Allergy status to other drugs, medicaments and biological substances - Allergy status to penicillin - Allergy status to penicillin - Encounter for screening for COVID-19 - Encounter for screening for COVID-19 - skilled nursing (current) use of insulin - skilled nursing (current) use of insulin - Migraine, unspecified, not intractable, without status migrainosus - Migraine, unspecified, not intractable, without status migrainosus - Non-pressure chronic ulcer of left heel and midfoot with necrosis of muscle - Non-pressure chronic ulcer of left heel and midfoot with necrosis of muscle - Patient's unintentional underdosing of medication regimen for other reason - Patient's unintentional underdosing of medication regimen for other reason - Personal history of nicotine dependence - Personal history of nicotine dependence - Type 2 diabetes mellitus with diabetic neuropathic arthropathy - Type 2 diabetes mellitus with diabetic neuropathic arthropathy - Type 2 diabetes mellitus with foot ulcer - Type 2 diabetes mellitus with foot ulcer - Type 2 diabetes mellitus with ketoacidosis without coma - Underdosing of insulin and oral hypoglycemic [antidiabetic] drugs, initial encounter - Underdosing of insulin and oral hypoglycemic [antidiabetic] drugs, initial encounter [email or web address]
[2023-06-26 14:51] LABS: BASOPHILS 0.8 % (0-2); EOSINOPHILS 0.5 % (0-6); HEMATOCRIT 24.8 % (35.0-50.0); HEMOGLOBIN 8.1 g/dL (12.0-18.0); LYMPHOCYTES 18.2 % (24-44); MCH 25.5 (27-36); MCHC 32.6 g/dl (30-36); MCV 78.2 fl (81-99); MONOCYTES 10.1 % (0-12); NEUTROPHILS 70.4 % (39-80); PLATELET COUNT 461 K/uL (140-440); RBC 3.16 M/ul (4.3-5.7); RDW 16.2 (10.5-15.0)
[2023-06-26 15:08] LABS: ALBUMIN 2.1 g/dL (3.4-5.0); ALBUMIN/GLOBULIN RATIO 0.39 (1.1-2.4); ANION GAP 14.8 (7-21); BILIRUBIN, TOTAL 1.1 ng/dL (0.2-1.0); BUN/CREATININE RATIO 15.29 (6.0-28.6); CALCIUM 7.8 mg/dL (8.5-10.1); CREATININE, SERUM 0.85 mg/dL (0.55-1.02); POTASSIUM 3.8 mmol/L (3.5-5.1); PROTEIN, TOTAL 7.5 g/dL (6.4-8.2)
[2023-06-26 16:22] LABS: INFLUENZA B NAA NEGATIVE (NEGATIVE); RESPIRATORY SYNCYTIAL VIR NAA NEGATIVE (NEGATIVE)
[2023-06-26 17:56] LABS: BILIRUBIN, URINE NEGATIVE (negative); BLOOD/HGB, URINE TRACE-I (Negative); KETONE, URINE NEGATIVE (Negative); LEUK ESTERASE, URINE TRACE (negative); NITRITE, URINE NEGATIVE (negative)
[2023-06-26 18:10] LABS: BACTERIA, URINE 1+ /hpf (negative); CASTS, URINE NONE SEEN \\lpf; CRYSTALS, URINE NONE SEEN (0-1+); EPITHELIAL CELLS, URINE SQUAMOUS 4+ /lpf (0-1+); RED BLOOD CELLS, URINE 0-1 /hpf (0-5)
[2023-06-26 18:11] LABS: COLLECTION TYPE, URINE CLEAN CATCH; REFLEX CULTURE, URINE No (No)
[2023-06-26 19:34] VITALS: BP 129/56
--- NOTE | 2023-06-26 20:05 | NUR ---
SHIFT REPORT RECEIVED. PATIENT RESTING IN BED WITH EYES CLOSED. PATIENT ON MONITOR; VS STABLE. CALL LIGHT IN REACH.
--- NOTE | 2023-06-26 20:30 | NUR ---
PATIENT UP TO THE BATHROOM. PATIENT BOOT USED ON RIGHT FOOT. PATIENT TOLERATED WELL. PATIENT VOIDED AND RETURNED TO BED. VS STABLE. PATIENT REPORTS PAIN IN HER LEFT FOOT WITH PRESSURE.
[2023-06-26 20:36] VITALS: BP 129/55
[2023-06-26 20:45] VITALS: BP 139/53
--- NOTE | 2023-06-26 20:50 | NUR ---
PT TRANSFERED OVER FROM CCU PER DRONE SOFTWARE DEVELOPMENT ENGINEER TO ROOM 122. PT WITH NO NEEDS AT THIS TIME, ALL PERSONAL BELONGINGS WITH PT. A\O, ROOM AIR. COMPLAINS OF BEING COLD, AWARE OF TEMP, KNOWS SHE CAN'T GET WARM BLANKETS. WATER AT BEDSIDE OFFERED AND ACCEPTED. CALL LIGHT WITHIN REACH.
--- NOTE | 2023-06-26 21:28 | NUR ---
Patient transferred oveer from CCU in bed. Appears comfortable, no noted distress, Report provided by CCU-RN.
--- NOTE | 2023-06-26 21:30 | NUR ---
BLOOD SUGAR, MEDICATIONS GIVEN; IV INFUSING PER ORDER. PT GIVEN SUGARFREE SODA, SF MARGARITA.
--- NOTE | 2023-06-26 22:31 | NUR ---
Patient assisted up to BSC with assist on 1 person, pivot transfer and gait usteady, boot applied to right foot prior to activity. Is now sitting up at bedside eating some jello, Patient has no complaints, call light within reach
--- NOTE | 2023-06-27 00:03 | NUR ---
Rounding on patient, resting comfortable on side, no noted distress, RR even and unlabored, call light within reach.
[2023-06-27 02:38] VITALS: BP 114/69
--- NOTE | 2023-06-27 02:39 | NUR ---
Patient is sleeping between care, VSS, Dressings to lower legs bilat remain clean, dry and intact, denies need for pain medication, call light within reach.
--- NOTE | 2023-06-27 04:09 | NUR ---
Patient appears a sleep, comfortable and no distress, RR even and unlabored, call light within reach.
--- NOTE | 2023-06-27 05:06 | NUR ---
Patient transferred over to medical floor from CCU last evening, Once admitted patient was assist up to BSC with one person assist and tolerated well. She has required no pain medication during the night. Upon arrival patient had a temp of 102 and given tylenol. She has slept well since then with no complaints. Recheck of temp was done and temp down to 97.8. Patient stated she was feeling better. BLE dressings intact, LE CMS intact.
[2023-06-27 05:42] LABS: BASOPHILS 0.8 % (0-2); EOSINOPHILS 1.6 % (0-6); HEMATOCRIT 22.4 % (35.0-50.0); HEMOGLOBIN 7.3 g/dL (12.0-18.0); LYMPHOCYTES 26.4 % (24-44); MCH 25.5 (27-36); MCHC 32.5 g/dl (30-36); MCV 78.7 fl (81-99); MONOCYTES 11.4 % (0-12); NEUTROPHILS 59.8 % (39-80); PLATELET COUNT 376 K/uL (140-440); RBC 2.84 M/ul (4.3-5.7); RDW 16.7 (10.5-15.0)
[2023-06-27 05:56] LABS: ANION GAP 12.9 (7-21); BUN/CREATININE RATIO 14.28 (6.0-28.6); CALCIUM 7.8 mg/dL (8.5-10.1); CREATININE, SERUM 0.7 mg/dL (0.55-1.02); POTASSIUM 3.9 mmol/L (3.5-5.1)
[2023-06-27 05:57] VITALS: BP 118/55
--- NOTE | 2023-06-27 06:01 | NUR ---
Patient VS remain stable and afebrile, Patient slept well last night, Assisted up to BSC with use of FWW and immobilizer boot to left lower leg. Toelrated well. Now back to bed resting, call light within reach.
--- NOTE | 2023-06-27 07:43 | NUR ---
REPORT RECEIVED FROM NIGHT RN - PT RESTING ON SIDE IN BED WITH EVEN RESPIRATIONS. CALL LIGHT IN REACH.
--- NOTE | 2023-06-27 08:17 | NUR ---
patient in bed this am, acu check completed. pt has no other requests at this time. call light within reach.
[2023-06-27 09:11] VITALS: BP 110/51
--- NOTE | 2023-06-27 09:35 | NUR ---
ASSESSMENT COMPLETE - PT RESTING IN BED WITHOUT PAIN. BILAT LOWER LEGS HAVE WRAP IN PLACE FROM DR. RASMUSSEN OFFICE. PT REPORTS FEELING BETTER TODAY, AFEBRILE. IV SITE WNL X 2. PT HAS NOT YET AMBULATED OUT OF BED YET THIS AM.
--- NOTE | 2023-06-27 10:52 | NUR ---
PT ASSISTED UP TO BSC TO VOID. INC OF STOOL IN UNDERWEAR. LOOSE STOOL NOTED IN COMMODE. PT REQUIRES ASSISTANCE CLEANING SELF. 1PA WITH FWW AND BOOT TO LEFT LEG TO TRANSFER, SOME INSTABILITY NOTED. PT BACK TO BED SITTING ON EDGE, PHYSICAL THERAPY WAITING.
--- NOTE | 2023-06-27 11:29 | NUR ---
ROUNDS. PHYSICAL THERAPHY WITH PT. DID NOT INTERRUPT. PROVIDED SILENT PRAYER.
--- NOTE | 2023-06-27 12:04 | NUR ---
PT UP TO CHAIR WITH PHYSICAL THERAPY - PT WITH LUNCH IN FRONT OF HER. INSULIN COVERAGE PROVIDED. AT BEDSIDE. MD IN ROOM TO ROUND.
--- NOTE | 2023-06-27 12:35 | NUR ---
Review - 06/27/2023 [facility] [place] review: Patient meets inpatient guidelines for 'Diabetes', clinical indications for foot ulcer and treatment. Guideline day 2 not met secondary to continued IV fluids, medication, and high blood sugar levels.
[2023-06-27 13:13] VITALS: BP 125/57
--- NOTE | 2023-06-27 13:30 | NUR ---
Spoke with Jose and her SO. Pt now planning on amputation of R foot next week. Pt states she has many concerns and feels she is deconditioned and will not be able to go home. She would like a SNF on dc as she states she cannot hold herself up on crutches or a walker as she has no arm strength. Per pt she has had issues for many years with her Charcot feet and and amputation was discussed 5 years of her R ft. We reviewed DME, Ramps, placement, prothesis, and recovery. I will send her chart to [facility] in case she needs placement on dc. Pt lives with her so, she has difficulty getting into her home at this point. She works at the [employer]. She has a scooter from issues in the past. She states she also has sleep apnea and had a CPAP in the past, pt did not use. She is waiting an appt for a sleep study. She also is scheduled to see endo for a insulin pump. She does use a Klaus 2, sensor with tomas to monitor her bs. CM will follow up with pt on Friday when plan is more defined for surgery and care.
--- NOTE | 2023-06-27 14:58 | NUR ---
Chart faxed to [facility] to check for possible placement after surgery.
--- NOTE | 2023-06-27 15:15 | NUR ---
pt is currently in room with friends talking. pt refused cares when offered . call light within reach
[2023-06-27] MEDS ORDERED: POTASSIUM CHLO20 ME1 PO (15:31)
[2023-06-27] MEDS ORDERED: GLIPIZIDE ER10 MG PO (15:33)
--- NOTE | 2023-06-27 16:36 | NUR ---
MED REC COMPLETE
[2023-06-27 17:01] VITALS: BP 132/49
--- NOTE | 2023-06-27 19:15 | NUR ---
Patient resting in bed and watching TV, no noted distress, report provided by day shift RN.
[2023-06-27 20:46] VITALS: BP 110/53
--- NOTE | 2023-06-27 21:01 | NUR ---
VSS, patient denies need for pain medication, bilt LE foot dressing intact, no noted drainage, CMS intact, Right foot and leg with edema, lower leg nelly with dry flaky skin. MD in and dressing to right leg changed, patient tolerated well, Patient and MD had a long conversation about POC. At this time patient has lights out, watching TV, call light within reach.
--- NOTE | 2023-06-27 22:05 | NUR ---
Patient resting on side with eyes closed, appears comfortable, no distress, RR even and unlabored.
--- NOTE | 2023-06-27 23:58 | NUR ---
Rounding on patient, appears a sleep, appears comfortable, RR even and unlabored.
[2023-06-28] VITALS (7 sets, daily range): BP systolic 123–145; BP diastolic 61–71
--- NOTE | 2023-06-28 01:01 | NUR ---
Patient called, assisted up to BSC with FWW and one person assist. tolerated well. VSS exdcept low grade temp of 99.4. Patient denies need for pain medication. Bilat lower extremety dressings remain clean,dry and intact, CMS intact. Back to bed and call light within reach.
--- NOTE | 2023-06-28 02:16 | NUR ---
Patient resting comfortable with eyes closed, appears comfortable, RR even and unlabored,
--- NOTE | 2023-06-28 03:51 | NUR ---
Patient resting on side with eyes closed, appears comfortable, no distress, RR even and unlabored, call light within reach.
--- NOTE | 2023-06-28 06:27 | NUR ---
Patient has slept well tonight, Had low grade temp of 99.4 remaining vital signs stable, She denies pain, Bilat LE dresssings have remained intact, clean and dry. Pivot transfers with use of FWW to BSC, voiding without difficulty. Resting now with eyes closed, appears comfortable.
--- NOTE | 2023-06-28 08:04 | NUR ---
PT ASSITED UP TO BSC TO VOID USING FWW AND PIVOT TRANSFER ON LEFT FOOT WITH BOOT. PT UP TO CHAIR AND PROVIDE WARM RAGS FOR AM CARES. AWAITING BREAKFAST. DENIES FURTHER NEEDS AT THIS TIME. CALL LIGHT IN REACH.
--- NOTE | 2023-06-28 10:31 | NUR ---
PT IN ROOM WORKING WITH PHYSICAL THERAPY.
--- NOTE | 2023-06-28 12:56 | NUR ---
PT REMAINS UP IN CHAIR EATING LUNCH WITH IN ROOM. INSULIN COVERAGE ADMINISTERED. DENIES FURTHER NEEDS. CALL LIGHT IN REACH.
--- NOTE | 2023-06-28 13:32 | NUR ---
DID PATIENT'S VITALS. CHANGED BEB LINENS. PATIENT NEEDED TO USE THE BED SIDE COMMODE. SO BEFORE SHE TRANFERED WE GOT THE CHAIR CLOSE ENOUGH TO THE BED SIDE COMMODE PATIENT USED HER WALKER. AND NO WEIGHT BEARING ON HER FOOT. THAN WE TRANSFERED TO HER BED.
--- NOTE | 2023-06-28 14:26 | NUR ---
PT RESTING IN BED ON SIDE, EYES CLOSED, RR EVEN AND UNLABORED. CALL LIGHT IN REACH.
--- NOTE | 2023-06-28 15:54 | NUR ---
PT RESTING IN BED WITH VISITORS IN ROOM.
--- NOTE | 2023-06-28 19:30 | NUR ---
SHIFT REPORT RECEIVED FROM ROMAINE Guerrero RN, PT FEELS LIKE SHE HAS A FEVER, TEMP CHECKED PER ROMAINE SMITH AND IS 99.7, PLAN TO MEDICATE WITH TYLENOL.
--- NOTE | 2023-06-28 20:12 | NUR ---
PT AWAKE AND ALERT, VS DONE, TEMP NOW 100.1 ORALLY, PT MEDICATED WITH TYLENOL PER ORDER, ASSESSMENT COMPLETED, BILATERAL FOOT DRESSINGS INTACT, PT TALKATIVE ABOUT UPCOMING RIGHT FOOT AMPULATION, SUPPORT GIVEN, NS INFUSING WELL PER LEFT AC, SITE INTACT, LEFT AC SL FLUSHES WELL. ACCUCHECK 292, 7 UNITS SS GIVEN PER ORDER.
--- NOTE | 2023-06-28 20:32 | NUR ---
PT WITH PERIODIC COUGH, SHE SAYS SHE FEELS LIKE SHE NEEDS TO COUGH WHEN SHE TAKES A DEEP BREATH, BREATH SOUNDS CLEAR UPPER LOBES AND DIM BUT CLEAR IN BASES, PT CONCERN HER SAT IS 94%, PT GIVEN AN I/S AND INSTRUCTED ON USE, PT USES WELL UP TO 1000ML, DISCUSSED THIS WOULD BE GOOD TO USE PERIODICALLY, PT VOICED UNDERSTANDING.
--- NOTE | 2023-06-28 21:50 | NUR ---
RN CALLED TO ROOM, PT ASSISTED UP TO BSC AFTER BOOT PUT ON LEFT LEG, PT TRANSFERS WITH FWW AND RN STANDBY, GOWN AND DRAW SHEET CHANGED AFTER FEELING SWEATY FROM EARILIER TYLENOL, PT BACK TO BED, BOOT REMOVED AND PT SITTING ON SIDE OF BED WORKING ON HER COMPUTER, PT WITHOUT OTHER REQUESTS, IV INFUSING WELL, I/O DONE.
--- NOTE | 2023-06-28 23:00 | NUR ---
PT ASLEEP, RESP EVEN AND REG.
--- NOTE | 2023-06-29 01:30 | NUR ---
PT ASLEEP, RESP EVEN AND REG, IVF INFUSING WELL.
--- NOTE | 2023-06-29 02:50 | NUR ---
RN CALLED TO ROOM, PT ASSISTED UP AND BOAT PLACED ON LEFT LEG, PT UP TO BSC WITH FFW, VOIDED 900ML YELLOW URINE, FOAM PAD TO COCCYX WHERE BRUISE NOTED BY BOBBI RN, NO OPEN AREAS NOTED. PT BACK TO BED, WITHOU REQUESTS AT THIS TIME.
--- NOTE | 2023-06-29 03:42 | NUR ---
TEMP RECHECKED, NOW WNL AND DOCUMENTED. IV PUMP ALARMING, OCCLUSION NOTED AND FLUIDS RESUMED. IV SITE WNL. FOLDED WASHCLOTH IN AC SITE TO PREVENT OCCLUSION. CALL LIGHT IN REACH, pt DENEIS ADDITIONAL NEEDS OR CONCERNS.
--- NOTE | 2023-06-29 04:30 | NUR ---
PT ASLEEP, RESP EVEN AND REG, NEW BAG OF 0.45% NS HUNG AND INFUSING WELL AT 100ML/HR.
[2023-06-29 05:50] VITALS: BP 139/69
--- NOTE | 2023-06-29 05:50 | NUR ---
PT ASLEEP, RESP EVEN AND REG, AWAKEN FOR VS, VS STABLE, AFEBRILE, I/O DONE, PT WITHOUT REQUESTS, IVF INFUSING WELL.
--- NOTE | 2023-06-29 06:30 | NUR ---
DR CANAS TO DEPARTMENTMD ASKED IF HE WOULD LIKE ANY AM LABS ON THIS PT, MD STATES NOT THIS AM BUT PLANS TO ORDER LABS FOR TOMORROW.
--- NOTE | 2023-06-29 07:22 | NUR ---
REPORT FROM LUIS STORM. PATIENT RESTING IN BED. EYES CLOSED AND RESPIRATIONS EVEN AND UNLABORED. ALLOWED TO REST AT THIS TIME. CALL LIGHT IN REACH, BED RAILS UP X2.
--- NOTE | 2023-06-29 08:17 | NUR ---
PATIENT ASSISTED UP TO RECLINER AFTER BEDSIDE COMMODE USE. CONTINENT OF URINE. COFFEE PROVIDED PER PATIENT REQUEST. DENIES OTHER NEEDS AT THIS TIME. CALL LIGHT IN REACH.
[2023-06-29 09:15] VITALS: BP 144/67
--- NOTE | 2023-06-29 11:00 | NUR ---
PATIENT ASSISTED TO BEDSIDE COMMODE. RETURNS TO RECLINER. USED BATH WIPES AND SHOWER CAP TO CLEANSE SELF THIS AM. COMPLETES CHAD CARE INDEPENDENTLY AFTER VOIDING. DENIES OTHER NEEDS AT THIS TIME. ENCOURAGED TO ELEVATE LEGS. CALL LIGHT IN REACH.
[2023-06-29 14:32] VITALS: BP 139/38
[2023-06-29 17:28] VITALS: BP 150/73
--- NOTE | 2023-06-29 19:08 | NUR ---
SHIFT REPORT RECEIVED FROM SCOTT SMITH.
--- NOTE | 2023-06-29 19:35 | NUR ---
PT APPEARS TO SLEEP, RESP EVEN AND REG.
[2023-06-29 22:20] VITALS: BP 160/66
--- NOTE | 2023-06-29 22:20 | NUR ---
PT AWAKE AND ALERT, ASSISTED UP TO BSC AFTER PLACEMENT OF BOOT ON LEFT LEG, PT PIVOTS WITH WT BEARING ON LEFT LEG USING THE WALKER, PT VOIDED 900ML YELLOW URINE, BACK TO BED, VS DONE, ACCUCHECK 278, 7 UNITS SS INSULIN GIVEN PER ORDER, RT MEDS GIVEN AND FRESH WATER GIVEN. DISCUSSED WITH PT ABOUT HER HOME MEDS. SHE WAS CONCERNED SHE HASN'T HAD HER PREGABLIN AND CHOLESTROL MEDICATION, PT DECLINES HAVING THE RN CALL MD AGUSTIN, BUT WOULD LIKE IT DISCUSSED WITH TOMORROW, PLAN TO F/U, PT UNSURE WHEN HER SURGERY MIGHT BE AND HOPES TO FIND OUT MORE INFORMATION TOMORROW, ASSESSMENT COMPLETED, PT DECLINES ELEVATING HER RIGHT LEG AT THIS TIME, STATING ITS DIFFICULT BECAUSE SHE LIKES TO LAY ON HER SIDE, PT STATES IV SITE PAINFUL IN LEFT AC, FLUIDS STOPPED, PAIN WITH FLUSHING AND NO BLOOD RETURN, REQUEST STU MEJIA RN TO COME AND ATTEMPT START, WARM BLANKETS TO ARMS IN PREP FOR IV START.
--- NOTE | 2023-06-29 23:10 | NUR ---
NEW [address] IN RIGHT FOREARM PER STU RN AFTER 1 UNSUCESSFUL ATTEMPT, PT TOLERATED WELL, IV IN RIGHT AC TENDER AND PAINFUL WHEN FLUSHED D/VERONIKA PER STU RN. IVG RESTARTED PER STU IN NEW IV SITE.
[2023-06-30] VITALS (7 sets, daily range): BP systolic 137–148; BP diastolic 65–71
--- NOTE | 2023-06-30 00:40 | NUR ---
PT AWAKE AND ALERT, ASSISTED UP TO BSC AFTER BOOT PLACED ON LEFT LEG, PT USES FFW AND 1PA, PT VOIDING WELL 700ML YELLOW URINE, BACK TO BED, WITHOUT REQUESTS, NEW BAG OF 0.45% NS HUNG AND INFUSING WELL AT 100ML PER ORDER PER RIGHT FA IV, SITE INTACT.
--- NOTE | 2023-06-30 02:40 | NUR ---
PT ASLEEP, RESP EVEN AND REG, AWAKEN TO ADJUSTED IV TUBING THAT WAS KINKED, BACK TO SLEEP, RESP EVEN AND REG.
--- NOTE | 2023-06-30 04:45 | NUR ---
PT APPEARS TO SLEEP, RESP EVEN AND REG. IVF INFUSING WELL.
--- NOTE | 2023-06-30 05:39 | NUR ---
CALL LIGHT ANSWERED. SBA WITH FWW TO BSC WITH BOOT IN PLACE ON LLE FOR VOID, 1000 ML CLEAR YELLOW URINE. BACK IN BED. SITTING UP AT SIDE OF BED. CALL LIGHT AND PERSONAL SUPPLIES IN REACH.
--- NOTE | 2023-06-30 05:45 | NUR ---
PT RESTING QUIETLY, AWAKE, VS DONE AND STABLE, AFEBRILE, IVF INFUSING WELL, PT WITHOUT REQUESTS AT THIS TIME, PT RECENTLY VOIDED.
--- NOTE | 2023-06-30 07:23 | NUR ---
PT ASLEEP IN BED
--- NOTE | 2023-06-30 08:04 | NUR ---
ASSESSMENT COMPLETE. PT UP TO BATHROOM. NO COMPLAINTS OF PAIN.
--- NOTE | 2023-06-30 13:45 | NUR ---
Spoke with Jose and she was able to speak with Dr. Means. Plan is for amputation on Fri. She has questions about SNF and wanted to know if it is possible for her to go there on DC. She forgot to ask Dr. Means about this, was here and he is in agreement this would be best dc for this pt as she has charcot of her other foot. He does not feel she will be able to easily walk on this foot. Will follow up with WBT tomorrow.
--- NOTE | 2023-06-30 13:48 | NUR ---
Pt had and boyfriend had questions about building a ramp and transportation. Let them know this is the responsibility of the family. I asked if she would like to have a Diabetes consult and she declined. She is set up to see an assistant professor of life sciences in [place] in the near future.
--- NOTE | 2023-06-30 14:40 | NUR ---
pt sitting up in chair working with physical therapy at this time.
[2023-06-30 14:49] LABS: BASOPHILS 1.2 % (0-2); EOSINOPHILS 1.9 % (0-6); HEMATOCRIT 25.8 % (35.0-50.0); HEMOGLOBIN 8.5 g/dL (12.0-18.0); LYMPHOCYTES 28.4 % (24-44); MCH 25.5 (27-36); MCHC 32.7 g/dl (30-36); MCV 77.9 fl (81-99); MONOCYTES 8.1 % (0-12); NEUTROPHILS 60.4 % (39-80); PLATELET COUNT 476 K/uL (140-440); RBC 3.32 M/ul (4.3-5.7); RDW 16.5 (10.5-15.0)
[2023-06-30 15:13] LABS: ANION GAP 12.1 (7-21); BUN/CREATININE RATIO 9.72 (6.0-28.6); CALCIUM 8.7 mg/dL (8.5-10.1); CREATININE, SERUM 0.72 mg/dL (0.55-1.02); POTASSIUM 4.1 mmol/L (3.5-5.1)
--- NOTE | 2023-06-30 17:45 | NUR ---
IN WITH PT, PROVIDES WOUND CARE TO LEFT FOOT.
--- NOTE | 2023-06-30 18:04 | PR ---
[facility] [address], [place] [address] Signed DATE OF STUDY: 06/27/2023 SUBJECTIVE: The patient was seen at bedside resting comfortably and under no apparent distress. The patient relates that she is feeling fairly well and may be doing better then what she was yesterday. PHYSICAL EXAMINATION: GENERAL: Decreased erythema and swelling generally noted with the patient's lateral right rear foot and ankle region. I and D locations and open wound locations appear to be stabilized. Drainage is moderate, serosanguinous and improved from previous examination. No sign of advancing tissue necrosis noted. Overall swelling has also decreased from previous examination. No blood discharge noted with change in the dressing or with flushing of the wound. ASSESSMENT: 1. Calcaneal fracture, right foot secondary to Charcot arthropathy. 2. Cellulitis secondary to hematoma formation. TREATMENT: The patient's right ankle and the rest of area was flushed utilizing sterile normal saline syringes. The packing was removed from the I and D locations and the right foot was dressed with gauze, ABD pad, Kerlix and COBAN. CARE OF PLAN: Discussion with the patient's right foot was performed. The patient has multiple fractures of the calcaneus and likely Charcot arthropathy present. Cancer recovery is poor for the right foot, whereas the high probability of infection as well as the comminuted fracture of the calcaneus with an extensive time and possible work to repair and to heal. Pros and cons of different management were discussed with the patient extensively. Past the amputation of the right lower extremity is the most feasible. This would allow quicker mobility. This would also decrease side effects from long-term antibiotics or other medications, although she has also decreased risk of recurrent infections that could lead to sepsis involving the right lower extremity. After careful discussion with the patient and questions being answered, the patient came to the conclusion that she would pursue surgical management in the form of the below the knee amputation for right lower extremity. Dr. Arauz has already consulted Dr. Means for this procedure and the patient was awaiting evaluation by Dr. Means. With the dressing still in place, the left foot wound has still remained in place for the next couple of days. The right foot dressing and ankle dressing can remain in place over the next couple of days. I would plan on seeing the patient again for followup examination the next week. *Electronically Signed* 06/30/23 1804 MIKE GRANADOS DPM PATIENT NAME: BRENDAN OCSTA PROGRESS NOTE DATE OF : 70 PHYSICIAN: MIKE GRANADOS DPM RPT #: [id number] REPORT IS CONFIDENTIAL AND NOT TO BE RELEASED WITHOUT AUTHORIZATION [facility] [address], [place] [address] Signed She will need to have the dressing changed for the left lower extremity. Right lower extremity matching, we will proceed to a ltfmn-nap-ovsy amputation managed by Dr. Means. LIZZIE Hoyos/SHAUNA /[id number] Copies: ~ *Electronically Signed* 06/30/23 1804 MIKE GRANADOS DPM PATIENT NAME: IGORBRENDAN PROGRESS NOTE DATE OF : 70 PHYSICIAN: MIKE GRANADOS DPM RPT #: [id number] REPORT IS CONFIDENTIAL AND NOT TO BE RELEASED WITHOUT AUTHORIZATION
--- NOTE | 2023-06-30 19:08 | NUR ---
SHIFT REPORT RECEIVED FROM YADY SMITH AT THIS TIME.
--- NOTE | 2023-06-30 20:00 | NUR ---
PT UP IN RECLINER, STATES SHE HAS BEEN UP MOST OF THE DAY, PT VISITING WITH , PT STATES SHE FELT GOOD ABOUT THE PLAN FOR SURGERY AND THAT SHE HAD A GOOD DISCUSSION WITH BOTH DR GRANADOS AND DR MACIEL, PT HAPPY THAT HOME MEDS RESTARTED, PT WITHOUT COMPLAINTS AT THIS TIME.
--- NOTE | 2023-06-30 22:00 | NUR ---
PT ASLEEP, AWAKEN FOR VS, RT MEDS AND ACCUCHECK, RT INSULIN GIVEN PER ORDER, ACCUCHECK 250, 5 UNITS SS INSULIN GIVEN. ASSESSMENT COMPLETE, PT ASSISTED UP TO BSC AFTER BOOT PLACED ON LEFT LEG, PT STANDS WITH FWW AND PIVOTS ON LEFT LEG, NON WT BEARING ON RIGHT FOOT, PT VOIDED 500ML. PT DENIES COMPLAINTS, BACK TO SLEEP.
[2023-07-01] VITALS (7 sets, daily range): BP systolic 123–148; BP diastolic 55–68
--- NOTE | 2023-07-01 00:25 | NUR ---
PT APPEARS TO SLEEP, RESP EVEN AND REG, IVF INFUSING WELL.
--- NOTE | 2023-07-01 02:05 | NUR ---
PT APPEARS TO SLEEP, RESP EVEN AND REG, WITHOUT DISTRESS.
--- NOTE | 2023-07-01 04:06 | NUR ---
PT APPEARS TO SLEEP, RESP EVEN AND REGULAR.
--- NOTE | 2023-07-01 06:49 | NUR ---
PT AWAKEN FOR VS, VS STABLE, AFEBRILE, PT ASSISTED UP TO BSC, VOIDED 1200ML YELLOW URINE, PT USING BOOT ON LEFT LEG AND FFW TO PIVOT, WITH NON WT BEARING ON RIGHT FOOT, PT BACK TO BED, RIGHT LATERAL ANKLE FOAM PAD (ALLEVAN) SATURATED WITH SEROUS FLUID, REMOVED, TWO ULCERATED AREAS CLEANSED WITH WOUND CLEANSER, PAD DRY WITH GENE AND COVERED WITH ALLEVAN. PT WITHOUT COMPLAINTS, NEW BAG OF 0.45%NS HUNG AND INFUSING WELL, SITE INTACT. PT TURNED TO SIDE, RESTING WITH EYES CLOSED.
--- NOTE | 2023-07-01 07:28 | NUR ---
REPORT RECEIVED FROM EMETERIO SMITH. PT ASLEEP WITH RESPIRATIONS ANKUR AND UNLABORED.
--- NOTE | 2023-07-01 08:36 | NUR ---
PT SITTING AT SIDE OF BED, NO COMPLAINTS AT THIS TIME, TOLERATING WELL.
--- NOTE | 2023-07-01 10:17 | NUR ---
ROUNDS. PT EXPRESSED STRONG POSITIVE POSITIVE OUTLOOK. PROVIDED ENCOURAGEMENT; NORMALIZED EPXERIENCE; PROVIDED PRAYER.
--- NOTE | 2023-07-01 10:30 | NUR ---
PT SITTING AT SIDE OF BED VISITING WITH . NO REQUESTS AT THIS TIME. CALL LIGHT WITHIN REACH.
--- NOTE | 2023-07-01 12:02 | NUR ---
PT SITTING IN CHAIR EATING LUNCH WITH .
--- NOTE | 2023-07-01 12:09 | NUR ---
Spoke with Jose and her SO, Jose. Jose went to [facility] and picked up a transport chair. Pt would now like a bariatric walker. I spoke with Anais and asked if they could qualifer through a private insurance as she is not 350#. They stated Medicare and private insurance will not cover bariatric DME for pts under 350#. I called [facility] and they do have a bariatric walker and they do not follow medicare rules. I discussed with Jose and Jose and he will pickup. I did remind them this is loaner DME for 3 months. Per Jose he was told by [facility] yesterday, he can call and extend the length of need.
--- NOTE | 2023-07-01 14:10 | NUR ---
PT SITTING UP IN CHAIR WITH LEGS ELEVATED. RESPIRATIONS EVEN AND UNLABORED. NO REQUESTS OR COMPLAINTS AT THIS TIME.
--- NOTE | 2023-07-01 14:11 | NUR ---
PATIENT SITTING UP IN HER CHAIR FOR MEALS.
--- NOTE | 2023-07-01 15:03 | NUR ---
pt reclining asleep in chair, respirations even and unlabored.
--- NOTE | 2023-07-01 16:47 | NUR ---
PT SITTING UP IN CHAIR TALKING ON PHONE.
--- NOTE | 2023-07-01 20:00 | NUR ---
Patient awake in bed, alert and oriented x4, no distress. Patient denies pain at this time. Pt aware of planned surgery tomorrow morning. No current needs, call light within reach.
[2023-07-02] VITALS (8 sets, daily range): BP systolic 127–148; BP diastolic 61–73
--- NOTE | 2023-07-02 02:44 | NUR ---
pt is resting with eyes closed. evena nd unlabored breathing noted. pt ent on npo status at midnight. no other cares needed or requested at this time. call light within reach
--- NOTE | 2023-07-02 04:10 | NUR ---
CHANGED PT IV FLUID. PT IS RESTING WITH EYES CLOSED EVENA ND UNLABORED BREATHING NOTED. NO OTHER CARES NEEDED AT THIS TIME CALL LIGHT WITHIN REACH
--- NOTE | 2023-07-02 06:22 | NUR ---
pt left floor to go with day surfery for planned amputation. day surgery nurse informed of pt blood sugar level of 259 which was taken at 0512.
--- NOTE | 2023-07-02 07:15 | NUR ---
REPORT RECEIVED FROM LUIS FOSS. PT OUT OF ROOM FOR PROCEDURE.
--- NOTE | 2023-07-02 08:52 | NUR ---
07/02/23 0852 Ceci Means 0808 PT TO PACU SLEEPING ORAL AIRWAY IN PLACE PT NEEDS JAW THRUST TO MAINTAIN AIRWAY. BLOOD GLUCOSE 251. O2 VIA MASK FOGGING NOTED IN MASK. BREATHING REGULAR
--- NOTE | 2023-07-02 09:11 | NUR ---
IN TO ROUND. PT OUT OF ROOM FOR PROCEDURE. PTs DAUGHTER AND MOTHER IN ROOM WAITING. PTs DAUGHTER AND MOTHER DENY ANY NEEDS AT THIS TIME.
--- NOTE | 2023-07-02 09:30 | NUR ---
PT ARRIVES TO ROOM IN BED WITH LUIS PALACIOS. BEDSIDE REPORT RECEIVED. PT RESPONDS WHEN ADDRESSED. PT DENIES ANY PAIN AT THIS TIME. ASSESSMENT COMPLETE. LUNG SOUNDS CLEAR. BOWEL TONES ACTIVE. LLE PEDAL PULSE PALPABLE. PT REPORTS CHRONIC NEUROPATHY IN LLE AND CANNOT FEEL WHEN FOOT IS TOUCHED, PT ABLE TO WIGGLE TOES. PT ABLE TO FEEL WHEN LEFT THOMAS IS TOUCHED. VITALS COMPLETE. CPOX PLACED. PT DENIES ANY NEEDS AT THIS TIME. CALL LIGHT IN REACH. DAUGHTER AND MOTHER IN ROOM.
[2023-07-02 10:03] LABS: BASOPHILS 0.5 % (0-2); EOSINOPHILS 0.5 % (0-6); HEMATOCRIT 22.2 % (35.0-50.0); HEMOGLOBIN 7.2 g/dL (12.0-18.0); LYMPHOCYTES 9.5 % (24-44); MCH 25.2 (27-36); MCHC 32.4 g/dl (30-36); MCV 77.8 fl (81-99); MONOCYTES 2.7 % (0-12); NEUTROPHILS 86.8 % (39-80); PLATELET COUNT 354 K/uL (140-440); RBC 2.86 M/ul (4.3-5.7); RDW 16.7 (10.5-15.0)
[2023-07-02 10:15] LABS: ALBUMIN 1.7 g/dL (3.4-5.0); ALBUMIN/GLOBULIN RATIO 0.38 (1.1-2.4); ANION GAP 13.6 (7-21); BILIRUBIN, TOTAL 0.3 ng/dL (0.2-1.0); BUN/CREATININE RATIO 11.53 (6.0-28.6); CALCIUM 7.8 mg/dL (8.5-10.1); CREATININE, SERUM 0.52 mg/dL (0.55-1.02); POTASSIUM 4.6 mmol/L (3.5-5.1); PROTEIN, TOTAL 6.2 g/dL (6.4-8.2)
--- NOTE | 2023-07-02 10:28 | NUR ---
IN TO ANSWER CALL LIGHT. PT REPORTS TOILETING NEEDS. SN NORI AND SN JOEY ASSIST THIS RN WITH PLACING BED MORRISON. PT REQUESTING SOME TIME. CALL LIGHT IN REACH. PT DENIES ANY OTHER NEEDS AT THIS TIME.
--- NOTE | 2023-07-02 10:47 | NUR ---
IN TO ROUND ON PT. PT REPORTS BEING DONE WITH BEDPAN. CHAD-CARE PROVIDED. NEW DRAW SHEET AND JESSI PADS PLACED. BARRIER CREAM APPLIED TO BUTTOCKS REDNESS NOTED, BLANCHABLE. MORNING MEDICATIONS ADMINISTERED, SEE MAR. PT TAKES PO MEDICAITON WITH NO ISSUES. VITALS COMPLETE. PT SITTING UP IN BED. PT DENIES ANY OTHER NEEDS AT THIS TIME. CALL LIGHT IN REACH. FAMILY IN ROOM.
--- NOTE | 2023-07-02 11:11 | NUR ---
PATIENT IS SLEEPING AND IS POST-OP BKA. [facility] IS REVIEWING A REFERRAL FOR SNIF PLACEMENT. MANAGER OPERATIONS AND PROCUREMENT WILL DISCUSS THE DC PLAN WHEN THE PATIENT IS AWAKE.
--- NOTE | 2023-07-02 11:35 | NUR ---
IN TO ADMINISTER MEDICATION, SEE AUG PT SITTING UP IN BED. PT REPORTING TOILETING NEEDS. 2PA WITH FWW FROM BED TO BSC. VOID NOTED. PT REQUESTIG TO SIT UP ON EDGE OF BED. PT SITTING ON EDGE OF BED. VITALS COMPLETE. IV FLUIDS INFUSING WNL. 1212 MEDICATION ADMINISTERED, SEE AUG. PT DENIES ANY OTHER NEEDS AT THIS TIME. CALL LIGHT IN REACH.
--- NOTE | 2023-07-02 13:20 | NUR ---
IN TO ROUND ON PT. PT SITTING UP ON EDGE OF BED WITH LUNCH TRAY. BROTH AND CRACKERS PROVIDED PER PT REQUEST. PT DENIES ANY OTHER NEEDS AT THIS TIME. PT VISITING WITH FAMILY. CALL LIGHT IN REACH.
--- NOTE | 2023-07-02 14:15 | NUR ---
IN WITH SN NORI TO ADMINISTER MEDICATION, SEE MAR. PT SITTING ON EDGE OF BED WITH PHYSICAL THERAPY IN ROOM. PT DENIES ANY OTHER NEEDS FROM THIS RN AT THIS TIME.
--- NOTE | 2023-07-02 14:35 | NUR ---
PATIENT IS SITTING IN A CHAIR WORKING WITH PT. PATIENT IS TOLERATING BEING UP. SPOKE TO PATIENT ABOUT THE DISCHARGE PLAN. PATIENT CONTINUES TO WANT TO GO TO [facility] [place] FOR SNF PLACEMENT. CM WILL SEND A POST-OP UPDATED REFFERAL.
--- NOTE | 2023-07-02 15:17 | NUR ---
IN TO ROUND ON PT. PT SITTING UP IN RECLINER VISITING WITH SIGNIFICANT OTHER. PT DENIES PAIN AT THIS TIME. RLE ELEVATED ON PILLOW IN RECLINER. ASSESSMENT COMPLETE. LUNG SOUNDS CLEAR. RLE DRESSING C/D/I. LLE DRESSING C/D/I. EDEMA NOTED TO LLE. EDEMA NOTED TO RLE. PT REPORTING PAIN IN RLE 08/16.
--- NOTE | 2023-07-02 15:51 | NUR ---
IN TO ADMINISTER PRN PAIN MEDICATION, SEE MAR. PT SITTING UP IN RECLINER AND TAKES PO MEDICATIONS WITH NO ISSUES. NEW ICE PACK PROVIDED FOR RIGHT BKA. PT DENIES ANY OTHER NEEDS AT THIS TIME. CALL LIGHT IN REACH. SIGNIFICANT OTHER IN ROOM.
--- NOTE | 2023-07-02 17:07 | NUR ---
IN WITH SN NORI TO ADMINISTER MEDICATIONS, SEE MAR. PT SITTING UP IN RECLINER AND TAKES PO MEDICATION WITH NO ISSUES. OT IN ROOM WITH PT. PT REPORTING PAIN 2/10 IN RLE. PT DENIES ANY NEEDS AT THIS TIME. CALL LIGHT IN REACH.
--- NOTE | 2023-07-02 18:16 | NUR ---
IN TO ROUND ON PT. PT SITTING UP IN RECLINER TALKING WITH MEDHAT BARTHOLOMEW. IV PUMP CLEARED. IV INFUSING WNL. PT REPORTING PAIN 1/10 TO RLE. PT DENIES ANY NEEDS AT THIS TIME. CALL LIGHT IN REACH.
--- NOTE | 2023-07-02 19:10 | NUR ---
Patient in chair watching TV, no noted distress, report provided by dayshift RN, call light within reach.
--- NOTE | 2023-07-02 20:20 | NUR ---
Patient assisted from chair to BSC, Assist of 1 person and FWW - tolerated well, had medium soft formed stool, Assisted to bed, Right BKA elevated with ice pack applied, dressing intact, clean and dry, VSS, Denies pain, IV infusing without difficulty. BS 312 and given 7u insulin per SS plus Glargine 20u per scheduled dose. Patient resting now watching TV. Continous pulse ox remains on for the night per protocol post op,
--- NOTE | 2023-07-02 20:35 | NUR ---
DR FREY AT RN STATION, VERBAL ORDER READ BACK FOR 0600 CBC AND CMP. PRIMARY RN BE MADE AWARE AND UPDATED.
--- NOTE | 2023-07-02 21:10 | NUR ---
Patient requested and given pain medication, States that BKA starting to ache and just wanting to make sure we stay on top of it. Lights are out, call light in reach.
--- NOTE | 2023-07-02 22:15 | NUR ---
Patient appears a sleep, appears comfortable, no noted distress, RR even and unlabored, O2 sats maintaining >92%. lights are out and call light within reach.
[2023-07-03] VITALS (8 sets, daily range): BP systolic 108–142; BP diastolic 53–71
--- NOTE | 2023-07-03 02:27 | NUR ---
Patient has been sleeping comfortable, VSS, no distress or c/o pain. right BKA dressing remains clean, dry and intact.
--- NOTE | 2023-07-03 03:14 | NUR ---
Patient called and assisted up to BSC with one person assist and FFW, tolerated well, right BKA dressing clean dry and intact. pulse ox on and sats 99%. Patient denying pain stating the pain meds help alot. now back in bed, lights out and call light within reach.
--- NOTE | 2023-07-03 04:53 | NUR ---
Patient resting, no complaints, appears comfortable, pulse ox staying > 95%, RR even and unlabored, call light within reach.
[2023-07-03 05:37] LABS: BASOPHILS 0.9 % (0-2); EOSINOPHILS 0.3 % (0-6); HEMATOCRIT 22.7 % (35.0-50.0); HEMOGLOBIN 7.2 g/dL (12.0-18.0); LYMPHOCYTES 20.2 % (24-44); MCHC 31.8 g/dl (30-36); MCV 78.6 fl (81-99); MONOCYTES 6.6 % (0-12); PLATELET COUNT 327 K/uL (140-440); RBC 2.89 M/ul (4.3-5.7); RDW 16.7 (10.5-15.0)
[2023-07-03 05:56] LABS: ALBUMIN 1.8 g/dL (3.4-5.0); ALKALINE PHOSPHATASE 111 U/L (46-116); ANION GAP 15.1 (7-21); AST (SGOT) 12 U/L (15-37); BILIRUBIN, TOTAL 0.3 ng/dL (0.2-1.0); CALCIUM 8.2 mg/dL (8.5-10.1); CARBON DIOXIDE 25 mmol/L (21-32); CHLORIDE 104 mmol/L (98-107); CREATININE, SERUM 0.51 mg/dL (0.55-1.02); GLOMERULAR FILTRATION RATE,EST 112 mL/min (>60); POTASSIUM 4.1 mmol/L (3.5-5.1); PROTEIN, TOTAL 6.3 g/dL (6.4-8.2); UREA NITROGEN 10 mg/dL (7-18)
[2023-07-03 06:10] LABS: ALT (SGPT) <6 U/L (14-59)
--- NOTE | 2023-07-03 06:16 | NUR ---
Patient awake and vitals signs stable, requested and given pain medication for Right BKA pain. Requested and given a cup of coffee, no further needs, watching TV, call light within reach.
--- NOTE | 2023-07-03 07:15 | NUR ---
REPORT RECEIVED FROM LUIS LR. PT LAYING IN BED AND RESPONDS WHEN ADDRESSED. PT DENIES ANY NEEDS AT THIS TIME. CALL LIGHT IN REACH. RLE ELEVATED IN BED.
--- NOTE | 2023-07-03 07:16 | NUR ---
REPORT RECEIVED FROM BE Pozo RN. CHECKED ON PT, PT IN BED SUPINE WATCHING TV,EXPRESSED WANTING TOILETING ASSISTANCE "IN A LITTLE BIT" BUT NO OTHER NEEDS NOTED. CALL LIGHT IN REACH.
--- NOTE | 2023-07-03 08:10 | NUR ---
IN TO GIVE MEDICATIONS AND DO MORNING ASSESSMENT. PT SITTING ON EDGE OF BED TO EAT BREAKFAST, PLEASANT AND CALM. PULSES IN ALL THREE EXTREMETIES, WEAK ON LEFT FOOT. LUNG SOUNDS CLEAR BUT DIMINISHED AT BASES BILATERALLY. GAVE PT IS AND EDUCATED ON USE. BOWEL SOUNDS HEAR IN ALL FOUR QUADRANTS. IV FLUSHED, PATENT AND WNL. RIGHT SURGICAL DRESSING HAS SOME SEROSANGUINOUS DRAINAGE, THIGH WARM AND DRY. PT HAS NO COMPLAINTS OF PAIN, RATES IT A 2/10 DOWN FROM A "5 OR 7". PT EATING BREAKFAST, CALL LIGHT IN REACH, NO REQUESTS AT THIS TIME.
--- NOTE | 2023-07-03 08:21 | NUR ---
IN WITH SN NORI TO ADMINISTER MEDICATIONS, SEE MAR. PT LAYING IN BED AND RESPONDS WHEN ADDRESSED. PT TAKES PO MEDICATIONS WITH NO ISSUES. ASSESSMENT COMPLETE. PT REPORTING PAIN 2/10 TO RLE. SHADOWING NOTED TO POSTERIOR DRESSING AND BOTTOM OF SUNSHINE WRAP ON RLE, OTHERWISE DRESSING INTACT. LLE COBAN DRESSING C/D/I. LUNG SOUNDS CLEAR IN RUL, NONI, AND LLL. DIMINISHED IN RLL. BOWEL TONES ACTIVE. EDEMA NOTED TO RLE AND LEFT FOOT. PT DENIES ANY PRN PAIN MEDICATIONS AT THIS TIME. PT ALSO DENIES ICE PACK WHEN OFFERED. PT REQUESTING TO SIT ON EDGE OF BED FOR BREAKFAST. PT SITTING UP ON EDGE OF BED. IV FLUSHES AND IS INFUSING WNL. PT DENIES ANY OTHER NEEDS AT THIS TIME. CALL LIGHT IN REACH.
--- NOTE | 2023-07-03 09:00 | NUR ---
IN TO ANSWER CALL LIGHT. PT REPORITNG TOILETING NEEDS. 1PA WITH FWW FROM BED TO BSC. VOID NOTED. 1PA WITH FWW FROM BSC BACK TO BED. PT DENIES ANY OTHER NEEDS AT THIS TIME. CALL LIGHT IN REACH.
--- NOTE | 2023-07-03 09:08 | NUR ---
ASSISTING PT WITH TOILETING NEEDS WITH JC Garrett RN. PT TOILETED, WASHED HANDS AND FACE WITH RAG. PT TRANSFER BACK TO EDGE OF BED AND SITTING COMFORTABLY. CALL LIGHT WITHIN REACH, NO OTHER NEEDS NOTED AT THIS TIME
--- NOTE | 2023-07-03 09:39 | NUR ---
IN WITH SN NORI TO ADMINISTER MEDICATION, SEE MAR. PT DENIES ANY PRN PAIN MEDICATION WHEN OFFERED. PT DENIES ICE PACK WHEN OFFERED. PT DENIES ANY OTHER NEEDS AT THIS TIME. CALL LIGHT IN REACH.
--- NOTE | 2023-07-03 10:45 | NUR ---
IN PT REPORTING PAIN 7/10 IN RLE. PRN PAIN MEDICATION ADMINISTERED, SEE MAR. PHYSICAL THERAPY IN ROOM. PT TAKES PO MEDICAITONS WITH NO ISSUES. PT DENIES ANY OTHER NEEDS FROM THIS RN AT THIS TIME. CALL LIGHT IN REACH.
--- NOTE | 2023-07-03 10:46 | NUR ---
PT CALL TO REPORT PAIN IN RLE, 12/16. SHE WAS SLEEPING AND WOKE UP WITH THE PAIN. PAIN MEDICATION ADMINISTERED, PHYSICAL THERAPY IN ROOM SIMULTANEOUSLY TO WORK WITH PT. PT EDUCATED TO STAY AHEAD OF PAIN BY PHYSICAL THERAPY. PT REPORTED NO OTHER NEEDS AT THIS TIME. CURRENTLY WORKING WITH PHYSICAL THERAPY.
--- NOTE | 2023-07-03 10:46 | NUR ---
Patient is here for infected Charcoat's foot. She had a BKA on the R yesterday. She said her appetite is better than a few days ago. She thinks the infection made her not want to eat very much. She does not have any chewing or swallowing problems, no food allergies. She states she does not like meatloaf. She did not have a menu so I brought her one and explained how to order off the personal choices if she would like. She really appreciated my time explaining this to her. I briefly educated her on choosing protein foods with each meal along with colorful foods specifically from fruits and veggies so that she gets nutrients to help her body heal. She has good understanding. She has no other questions or concers at this time. RD will follow-up in 5 days unless needed to provide nutrition intervention before then.
--- NOTE | 2023-07-03 11:48 | NUR ---
IN WITH NORI, SN TO ROUND ON PT. PT SITTING UP IN RECLINER. PT RESPONDS WHEN ADDRESSED. BG CHECKED. 1156 MEDICATION ADMINISTERED, SEE AUG. DIET SANA PROVIDED PER PT REQUEST. PT DENIES ANY OTHER NEEDS AT THIS TIME. CALL LIGHT IN REACH. SIGNIFICANT OTHER IN ROOM.
--- NOTE | 2023-07-03 11:56 | NUR ---
CHECKING ON PT. PT REPORTS PAIN IS A 2/10. CHECKED PT BLOOD SUGAR AND ADMINISTERED INSULIN. PT STATED PHYSICAL THERAPY WENT WELL. PT UP TO RECLINER, IN ROOM ON COUCH. CALL LIGHT WITHIN REACH, NO OTHER NEEDS IDENTIFIED AT THIS TIME.
--- NOTE | 2023-07-03 13:16 | NUR ---
IN TO CHECK ON PT, MUSEUM CURATOR LUNCH TRAY. PT ATE 100% OF LUNCH, NO C/O N/V. PT STATES ACHEY MUSCLE PAIN 2/10 AND WOULD LIKE TO TRY TYLENOL TO STAY AHEAD OF PAIN. SITTING IN RECLINER ON CELL PHONE, PRESENT IN ROOM ON COUCH. CALL LIGHT WITHIN REACH, NO OTHER NEEDS STATED AT THIS TIME.
--- NOTE | 2023-07-03 13:32 | NUR ---
IN WITH SN NORI PT REPORTING "ACHY PAIN" 2/10 IN RLE. PRN PAIN MEDICATION ADMINISTERED, SEE MAR. PT SITTING UP IN RECLINER AND TAKES PO MEDICATION WITH NO ISSUES. IV ABX STARTED, SEE MAR. ASSESSMENT COMPLETE. LUNG SOUNDS CLEAR. DRESSING TO RLE SUNSHINE WRAP NO CHANGE FROM PREVIOUS ASSESSMENT. BOOT IN PLACE ON LLE. IV INFUSING WNL. PT DENIES ANY OTHER NEEDS AT THIS TIME. CALL LIGHT IN REACH.
--- NOTE | 2023-07-03 13:35 | NUR ---
PAIN MEDICATION AND ABX ADMINISTERED, SEE AUG. PT BREATH SOUNDS CLEAR. PT SHOWED USE OF IS TO 2500 WITH NO COUGH OR SOB. PT RLE DRESSING DRY AND INTACT, NO FURTHER DRAINAGE FROM THIS MORNING. REMAINING LEG COOL TO THE TOUCH, NO SWELLING OR PAIN OUT OF PROPORTION. PT IN RECLINER EXCERSIZING WITH LEG/ARM BAND. PLEASANT AND COOPERATIVE. CALL LIGHT IN REACH, NO OTHER COMPLAINTS NOTED AT THIS TIME.
--- NOTE | 2023-07-03 14:00 | NUR ---
Spoke with Jose. She states she is feeling well. She is sitting up in a chair. States she will return to surgery tomorrow and may need to have an AKA. Her SO has been preparing everything at home for after her dc from the hospital and a SNF. He is looking for a lift chair for her. Pt remains very pleasant as always and denies any needs at this time.
--- NOTE | 2023-07-03 14:50 | NUR ---
IN TO ROUND ON PT. PT RECLINED IN CHAIR. PT RESTING WITH EYES CLOSED, RR EVEN AND UNLABORED. IV INFUSING WNL. MEDHAT FAJARDO IN ROOM. NO NEEDS IDENTIFIED AT THIS TIME. CALL LIGHT IN REACH.
--- NOTE | 2023-07-03 14:50 | NUR ---
CHECKED PT TO RE-ASSESS PAIN, PT SLEEPING IN RECLINER, RESPIRATIONS EQUAL AND UNLABORED. MEDHAT FAJARDO IN ROOM. CALL LIGHT WITHIN REACH, NO NEEDS NOTED AT THIS TIME.
--- NOTE | 2023-07-03 15:25 | NUR ---
PATIENT RESTING IN RECLINER, VITALS AND I&OS CHARTED. FRESH ICE WATER PROVIDED. CALL LIGHTI N EASY REACH. NO OTHER NEEDS AT THIS TIME
--- NOTE | 2023-07-03 15:50 | NUR ---
IN TO ASSESS PT CALL LIGHT, IV PUMP WAS ALARMING. NEW BAG OF 0.45% NS HUNG, PAIN MEDICATION ADMINISTERED (SEE MAR) FOR PAIN LEVEL 8/10. ASSESSED SURGICAL SITE, MODERATE AMOUNT OF SEROSANGENIOUS FLUID ON JESSI THAT THE LIMB IS ELEVATED ON. REMAINING LIMB IS WARM AND DRY, NO EXCESS SWELLING OR HEAT. LEFT FOOT PULSE ASSESSED, FAINT, ABLE TO WIGGLE TOES. STILL REPORTS FOOT NUMB. PT IS UP IN RECLINER CHAIR VISITING WITH A FRIEND, SOME BROW WRINKLING WITH MOVEMENT, BREATHING UNLABORED. CALL LIGHT WITHIN REACH, NO OTHER NEEDS NOTED AT THIS TIME.
--- NOTE | 2023-07-03 15:50 | NUR ---
IN WITH SN NORI PT REPORTING PAIN 8/10 IN RLE. PRN PAIN MEDICATION ADMINISTERED, SEE MAR. NEW BAG OF FLUIDS STARTED, SEE AUG. IV INFUSING WNL. LLE PEDAL PULSE PALPABLE, FAINT, CMS INTACT. RLE SUNSHINE WRAP DRESSING NOTED TO HAVE MODERATE AMOUNT OF DRAINAGE, NEW DRAINAGE NOTED TO JESSI PAD UNDER RLE. SEROUSANGUENOUS DRAINAGE NOTED. PT SITTING UP IN RECLINER. PT TAKES PO MEDICAITON WITH NO ISSUES. PT DENIES ANY OTHER NEEDS AT THIS TIME. CALL LIGHT IN REACH. VISITOR IN ROOM.
--- NOTE | 2023-07-03 17:09 | NUR ---
IN WITH SN NORI TO CHECK BG. PT SITTING UP IN RECLINER. PT REPORTING PAIN 10 AND STATES "IT IS STARTING TO SUBSIDE." OFFERED ICE PACK, PT REFUSED. 171 MEDICATIONS ADMINISTERED, SEE MAR. PT TAKES PO MEDICATION WITH NO ISSUES. PT DENIES ANY NEEDS AT THIS TIME. CALL LIGHT IN REACH. IV INFUSING WNL.
--- NOTE | 2023-07-03 17:17 | NUR ---
IN TO ADMINISTER MEDICATIONS PER MAR, SEE MAR. PT SITTING UP IN RECLINER WITH LEGS ELEVATED, RLE ON TWO PILLOWS. PT C/O PAIN AT 6/10, DOWN FROM 8/10. PT APPEARS TIRED BUT OTHERWISE RESTING. CALL LIGHT IN REACH AND HAS NO NEEDS OTHER THAN PAIN RELIEF. REPOSITIONING AND ICE PACK OFFERED BUT PT REFUSED.
--- NOTE | 2023-07-03 18:13 | NUR ---
IN WITH SN NORI. PT SITTING UP IN RECLINER. ASKED PT IF PT IS WILLING TO ATTEMPT TO VOID. PT AGREEABLE. SBA WITH FWW FROM RECLINER TO BSC. PT REQUESTING SOME TIME. CALL LIGHT HANDED TO PT.
--- NOTE | 2023-07-03 18:25 | NUR ---
IN TO ANSWER CALL LIGHT. PT REPORTS BEING DONE TOILETING. VOID NOTED. SBA WITH FWW FROM BSC TO RECLINER. PT STATES "MY PAIN IS SO MUCH BETTER AFTER MOVING AROUND, I THINK I AM GOING TO KEEP MY LEG DOWN FOR A LITTLE WHILE." PT IN RECLINER. PT DENIES ANY OTHER NEEDS AT THIS TIME. CALL LIGHT IN REACH.
--- NOTE | 2023-07-03 20:48 | NUR ---
SITTING IN CHAIR VISITING. CPOX OFF BY RN. SPOKE WITH MAGAZINE JOURNALIST AND SUGGESTED IF OXYCODONE GIVEN WE MAY WANT TO PUT CPOX ON IZABELLA SCORE IS 5.
--- NOTE | 2023-07-03 21:30 | NUR ---
SPOKE TO DR FREY pt IS NPO AT MIDNIGHT AND GOING TO SURGERY IN THE AM. TELEPHONE ORDER READ BACK TO CHANGE INSULIN SS LISPRO, MODERATE SCALE FROM WMHS TO Q6H AND TO CHANGE ACCUCHECKS FROM WMHS TO Q6H. ALSO RECEIVED TELEPHONE ORDER READ BACK TO LOWER INSULIN GLARGINE FROM 25 UNITS TO 12 UNITS FOR TONIGHTS EVENING DOSE AND THE AM DOSE FOR 07/04/23 THEN CAN RESUME THE ORIGINAL DOSE OF 25 UNITS TOMORROW EVENING (07/04/23) ONCE THE pt IS NO LONGER NPO. PRIMARY RN AWARE AND UPDATED, WRITTEN ORDER REGARDING INSULIN GLARINE FAXED TO TELEPHARMACY TO UPDATE IN EMAR. THIS RN TO UPDATE INSULIN LISPRO ORDERS.
--- NOTE | 2023-07-03 23:35 | NUR ---
Patient without urine output. States that she doesn't feel she needs to go and is not uncomfortable, Did assist patient up to BSC in attempt to go with no output, bladder scan difficult and did get assist from recharger which only showing 35ml in bladder. IV fluids @ 100/h. Has had 150ml out since 09 this morning. Vital signs stable, MD notified, order given to insert ceja to assess output and will, as well, prepare patient for planned surgery in am.
--- NOTE | 2023-07-03 23:56 | NUR ---
16F GALE CATHETER INSTERTED, pt TOLERATED WELL. 200 MLS IN BAG. pt DENIES ANY OTHER NEEDS AT THIS TIME. CALL LIGHT WITHIN REACH.
[2023-07-04] VITALS (8 sets, daily range): BP systolic 90–139; BP diastolic 50–64
--- NOTE | 2023-07-04 01:55 | NUR ---
NEW BAG IV FLUID INFUSING PER ORDER. NO FURTHER NEEDS.
--- NOTE | 2023-07-04 05:01 | NUR ---
Patient remains a sleep, appears comfortable, ceja intact below level of bed, adequate urine output of clear yellow urine, IV infusing @ 100/h. no noted distress, RR even and unlabored, Has been NPO since CA for am surgery.
--- NOTE | 2023-07-04 05:21 | NUR ---
Patient awake for lab draw, Medicated for pain per request, slept slept well, small amt of drainage from right BKA dressing. Remains NPO, Contious puse ox through the night remained >92%. Patient with no further needs and wanting to sleep longer. lights out and call light within reach.
[2023-07-04 05:36] LABS: BASOPHILS 0.2 % (0-2); EOSINOPHILS 1.3 % (0-6); LYMPHOCYTES 30.4 % (24-44); MCH 25.1 (27-36); MCHC 31.9 g/dl (30-36); MCV 78.6 fl (81-99); NEUTROPHILS 61.1 % (39-80); PLATELET COUNT 352 K/uL (140-440); RDW 17.5 (10.5-15.0)
[2023-07-04 05:48] LABS: ANION GAP 14.7 (7-21); BUN/CREATININE RATIO 16.41 (6.0-28.6); CALCIUM 7.9 mg/dL (8.5-10.1); CREATININE, SERUM 0.67 mg/dL (0.55-1.02); POTASSIUM 3.7 mmol/L (3.5-5.1)
--- NOTE | 2023-07-04 07:10 | NUR ---
REPORT RECEIVED FROM LUIS LR. PT LAYING IN BED SEMI-FOWLERS. EYES CLOSED, RR EVEN AND UNLABORED. CPOX IN PLACE O2 SATS NOTED TO BE 93% ON RA. NO NEEDS IDENTIFIED AT THIS TIME. CALL LIGHT IN REACH. MOTHER IN ROOM ON COUCH.
--- NOTE | 2023-07-04 08:05 | NUR ---
IN TO ADMINISTER MEDICATIONS PER MAR AND DO MORNING ASSESSMENT. PT REPORTED 8/10 PAIN TO HER RLE, PAIN MEDICATION ADMINISTERED. PT RECEIVED PRE-OPERATIVE WIPE DOWN WITH CHLORHEXIDINE WIPES, NEW BED SHEETS/PILLOW CASES/GOWN, CATHETER CARE, IV ASSESSED AND FLUSHED WITH 10ML NS. PT BREATH SOUNDS CLEAR BILATERALLY, BOWEL SOUNDS NORMOACTIVE IN ALL FOUR QUADRANTS, NO ABDOMINAL TENDERNESS NOTED. RADIAL PULSES STRONG AND EQUAL, LEFT PEDAL PULSE PALPATED BUT FAINT. PT REPORTS FEELING TIRED, READY FOR SURGICAL CLEAN OUT/WOUND INSPECTION. PT IN BED, CALL LIGHT IN REACH, NO FURTHER NEEDS NOTED AT THIS TIME. MOTHER PRESENT ON COUCH.
--- NOTE | 2023-07-04 08:29 | NUR ---
IN WITH SN NORI TO ADMINISTER MEDICATIONS WITH SIP OF WATER, SEE MAR. PT SITTING UP IN BED AND RESPONDS WHEN ADDRESSED. PT TAKES PO MEDICAITONS WITH NO ISSUES WITH SIP OF WATER. PRE SURGICAL WIPE DOWN AND LINEN CHANGE COMPLETE. PT REPORTING PAIN 8/10 IN RLE. PRN TYLENOL ADMINISTERED, SEE MAR. PT TAKES WITH SIP OF WATER. ASSESSMENT COMPLETE. LUNG SOUNDS CLEAR IN RUL, NONI AND RLL. DIMINISHED IN LLL. BOWLE TONES ACTIVE. DRESSING TO LLE C/D/I. CMS INTACT TO LLE WITH REGARDS TO CHRONIC NUMBNESS TO LEFT FOOT. RLE DRESSING D/I WITH MODERATE AMOUNT OF SHADOWING NOTED TO POSTERIOR LEG. GALE CARE COMPLETE. GALE EMPTIED. IV FLUSHES AND IS INFUSING WNL. PT SITTING UP IN BED. PT DENIES ANY OTHER NEEDS AT THIS TIME. CALL LIGHT IN REACH. MOTHER IN ROOM ON COUCH.
--- NOTE | 2023-07-04 10:27 | NUR ---
IN WITH SN NORI TO ADMINISTER MEDICATION, SEE MAR. PT SITTING UP ON EDGE OF BED. PT REPORTING PAIN 2/10 IN RLE. IV INFUSING WNL. IV ABX ADMINISTRED, SEE MAR. PT DENIES ANY OTHER NEEDS AT THIS TIME. CALL LIGHT IN REACH. MOTHER IN ROOM.
--- NOTE | 2023-07-04 10:33 | NUR ---
1017: IN TO CHECK ON PT WHEN HOSPITALIST WENT IN. PT SITTING ON EDGE OF BED, CONVERSING WITH MOTHER. CALL LIGHT IN REACH, NO NEEDS IDENTIFIED AT THIS TIME. 1029: IN TO ADMINISTER ABX PER AUG. PT STILL SITTING ON EDGE OF BED CONVERSING WITH MUM. PAIN IN RLE IMPROVED WITH MOVEMENT AND SITTING ON EDGE OF BED. CALL LIGHT IN REACH, NO OTHER NEEDS NOTED AT THIS TIME.
--- NOTE | 2023-07-04 11:21 | PATH ---
[facility] [address], [place] [address] Signed SPECIMEN(S): A RIGHT LOWER LEG SPECIMEN SOURCE: A. RIGHT LOWER LEG CLINICAL HISTORY: Infected right Charcot foot FINAL PATHOLOGIC DIAGNOSIS: Leg, right lower, below-knee amputation: - Skin and soft tissue with ulceration and acute and chronic inflammation - Bone with acute osteomyelitis - Surgical skin, bone, and soft tissue margins appear viable BRP MICROSCOPIC EXAMINATION: Histologic sections of all submitted blocks are examined by light microscopy. These findings, together with the gross examination, support the pathologic diagnosis. GROSS DESCRIPTION: The specimen, labeled and designated "Bruce, " and designated on the requisition "right lower leg," is received fresh and consists of a right below the knee amputation (foot: 24 cm in length by 8.0 cm in width, le cm in length and ranging in diameter from 9.5 to 13.2 cm). The foot has a rocker-bottom appearance with five toes each with garrett slightly thickened toenail and two areas of ulceration on the lateral proximal aspect that measure 0.6 x 0.5 cm and 0.7 x 0.5 cm. The areas of ulceration are located 17 cm from the nearest skin and soft tissue margin. The bone underlying the areas of ulceration is markedly softened. The remainder of the skin is garrett-pink smooth and intact. The soft tissue margins are markedly edematous with pale muscle. Cassette Summary: (A1) areas of ulceration (A2) bone underlying areas of ulceration decalcified in DECAL STAT (A3) plantar aspect of foot (A4) skin and soft tissue margin closest to ulcerations, shaved (A5) tibial bone marrow at margin decalcified in DECAL STAT (A6) fibular bone marrow at margin PATIENT NAME: BRENDAN COSTA PATHOLOGY DATE OF : 70 REPORT #: [id number] PHYSICIAN: RYAN PATHOLOGY PCP: MADHU CAST MD REPORT IS CONFIDENTIAL AND NOT TO BE RELEASED WITHOUT AUTHORIZATION [facility] [address], [place] [address] Signed (A7) anterior and posterior tibial vessels AC (under the direct supervision of a pathologist) The Gross Description was prepared using a voice recognition system. The report was reviewed for accuracy; however, sound-alike word errors, addition and/or deletions may occur. If there is any question about this report, please contact Client Services. ADDITIONAL NOTES: Immunohistochemical and/or in situ hybridization studies if performed in this case included appropriate positive controls that reacted as expected. This test was developed and its performance characteristics determined by [facility]. It has not been cleared or approved by the U.S. Food and Drug Administration. The FDA has determined that such clearance or approval is not necessary. This test is used for clinical purposes. It should not be regarded as investigational or for research. [facility] is certified under the Clinical Laboratory Improvement Amendments of 1988 (CLIA) as qualified to perform high complexity clinical laboratory testing. PERFORMING LABORATORY: Technical component was performed by [facility], [address] [place] [id number] (CLIA# [id number]). Professional interpretation was performed by [facility] - [facility], [address] [place] [address] (CLIA#:[id number]). Diagnostician: Evgeny Ventura MD Pathologist Electronically Signed 07/04/2023 Copies: ~ PATIENT NAME: BRENDAN COSTA PATHOLOGY DATE OF : 70 REPORT #: [id number] PHYSICIAN: RYAN OWENS PCP: MADHU CAST MD REPORT IS CONFIDENTIAL AND NOT TO BE RELEASED WITHOUT AUTHORIZATION
--- NOTE | 2023-07-04 11:48 | NUR ---
SURGERY HERE TO FAMILY SERVICE COUNSELOR PT. PT SALINE LOCKED. MUM AND IN ROOM ON COUCH.
--- NOTE | 2023-07-04 11:48 | NUR ---
SURGERY HERE TO TAKE PT. PT REMOVED FROM 0.45% NS AT 100ML/HR AND TRANSFERRED TO HUNG AND WIDE OPEN. PT APPEARED IN GOOD SPIRITS. MUM AND WAITING IN ROOM.
--- NOTE | 2023-07-04 11:56 | NUR ---
SURGICAL NURSE HERE TO TAKE PT FOR PROCEDURE.
--- NOTE | 2023-07-04 13:40 | NUR ---
07/04/23 1340 Julee Oliver PATIENT ARRIVES IN PACU WITH ORAL AND NASAL AIRWAYS IN PLACE. REESE GARCES IS AT THE BEDSIDE PERFORMING A SCIATIC NERVE BLOCK. PATIENT DOES RESPOND TO RN LOUD VOICE BY SLIGHTLY OPENING HER EYES, BUT RETURNS TO RESTING QUIETLY W/RESPIRATIONS EVEN AND UNLABORED.
--- NOTE | 2023-07-04 13:57 | NUR ---
PATIENT IS IN THE OR FOR POSSIBLE WOUND CLOSURE. THE PLAN IS THE PATIENT WILL GO TO [place] FOR REHAB. "IF THERE IS A BED AVAILABLE" PER PATIENT'S CHOICE".TURRET LATHE TENDER WILL SEND CURRENT CHART UPDATES FOR REVIEW AT [facility].
--- NOTE | 2023-07-04 14:45 | NUR ---
PT ARRIVES TO ROOM POST OP IN BED ACCOMPANIED BY SANIYA Dumont RN. PT RESTING IN BED WITH 2L NC IN PLACE. CPOX PLACED. VITALS COMPLETE. ASSESSMENT COMPLETE. LUNG SOUNDS CLEAR IN RUL AND NONI. DIMINISHED IN RLL AND LLL. PEDAL PULSE PALPABLE IN LLE, CMS INTACT. RLE DRESSING C/D/I. RLE ELEVATED ON PILLOW. ICE PACK TO RLE. IV FLUIDS STARTED, SEE MAR. IV FLUSHES WNL. PT CONTINUES TO REST IN BED. PT DENIES ANY NEEDS WHEN ASKED. CALL LIGHT PLACED NEXT TO PTs HAND. IN ROOM DENIES ANY NEEDS.
--- NOTE | 2023-07-04 15:53 | NUR ---
IN TO ADMINISTER MEDICATION, SEE MAR. PT LAYING IN BED SEMI-FOWLERS. EYES CLOSED, RR EVEN AND UNLABORED. PT OPENS EYES AND RESPONDS TO VOICE AND THEN GOES BACK TO RESTING. IV INFUSING WNL. VITALS COMPLETE. NO OTHER NEEDS IDENTIFIED AT THIS TIME. CALL LIGHT IN REACH.
--- NOTE | 2023-07-04 16:54 | NUR ---
IN FOR VITALS. VITALS COMPLETE. LUIS GLORIA IN TO OBTAIN BG. 1707 MEDICATION ADMINISTERED WITH SN NORI. SEE MAR. PT SITS UP IN BED AND TAKES SIP OF WATER WITH NO ISSUES. PT TAKES PO MEDICATION WITH NO ISSUES. PT TAKES A FEW BITES OF SUGAR FREE PUDDING WITH NO ISSUES. PT DENIES PAIN AT THIS TIME. PILLOW UNDER PTs RIGHT HIP PLACED PER PT REQUEST. RLE ELEVATED ON PILLOW, ICE PACK IN PLACE. PT DENIES ANY OTHER NEEDS AT THIS TIME. CALL LIGHT IN REACH.
--- NOTE | 2023-07-04 17:50 | NUR ---
IN TO CHECK FINAL POST-OP VITALS AND I&O. PT SLEEPING IN BED, PILLOW UNDER RIGHT HIP, RLE ELEVATED WITH ICE PACK IN PLACE. PT REPORTS FEELING COMFORTABLE AND HAS NO NEEDS AT THIS TIME. CALL LIGHT IN REACH.
--- NOTE | 2023-07-04 17:51 | NUR ---
IN TO ROUND ON PT AND OBTAIN VITALS. VITALS AND I&Os COMPLETE. PT RESTING IN BED WITH EYES CLOSED, RR EVEN AND UNLABORED. PT RESPONDS WHEN ADDRESSED AND OPENS EYES. PT DENIES ANY OTHER NEEDS AT THIS TIME. CALL LIGHT IN REACH.
--- NOTE | 2023-07-04 18:48 | NUR ---
PT ARRIVES TO ROOM POST OP FROM RLE WOUND CLEANING AND DRESSING CHANGE. VSS. GALE IN PLACE, VOIDING QS. PT A&O. DRESSING TO RLE REMAINS C/D/I. RLE ELEVATED ON PILLOW WITH ICE PACK IN PLACE. DRESSING TO LLE C/D/I. PT HAS NO COMPLAINTS OF PAIN POST OP. CPOX REMAINS IN PLACE.
--- NOTE | 2023-07-04 19:20 | NUR ---
Patient resting with eyes closed, continous pulse ox on with sats >92%. no distess noted ,RR even and unlabored. Report provided by day shift RN.
--- NOTE | 2023-07-04 20:20 | NUR ---
Patient drowsy but easily arroused. VSS, Right BKA dressing intact, clean and dry. ice pack applied and elevated on pillow. IV fluids infusing at 100/h, Moore intact and secured below level of bed with adequate clear yellow urine noted. Patient has not eaten today and discussed with MD patient does of Glargine tonight which he ordered to be cut in half from 25u to 12u. Blood sugar 175 and no SS coverage given. call light within reach.
--- NOTE | 2023-07-04 22:19 | NUR ---
Patient resting with eyes closed, barb stated she was having some post op pain in that Right BKA and medicated with oxy 5mg. appears comfortable, RR even and unlabored and continous pulse ox reading > 92%. call light within reach.
[2023-07-05] VITALS (9 sets, daily range): BP systolic 111–152; BP diastolic 53–66
--- NOTE | 2023-07-05 00:26 | NUR ---
Patient resting comfortable with eyes closed, no noted distress, RR even and unlabored, continous pulse ox on with sats >92%, Have a few episodes with sats @ 88% while sleeping and placed on 2 liters per NC.
--- NOTE | 2023-07-05 02:03 | NUR ---
Patient resting comfortable, VSS, right lower leg dressing clean, dry and intact, ceja intact and secured below level of bed. Patient expressing no needs at this time. Continous pulse ox @ 98%. call light within reach.
--- NOTE | 2023-07-05 04:12 | NUR ---
Patient continues resting comfortable, no noted distress, RR even and unlabored, O2 sats 97%. Right BKA dressing clean dry and intact.
[2023-07-05 05:30] LABS: BASOPHILS 0.6 % (0-2); EOSINOPHILS 0.5 % (0-6); HEMATOCRIT 21.3 % (35.0-50.0); HEMOGLOBIN 6.7 g/dL (12.0-18.0); LYMPHOCYTES 26.2 % (24-44); MCH 24.6 (27-36); MCHC 31.3 g/dl (30-36); MCV 78.8 fl (81-99); MONOCYTES 9.1 % (0-12); NEUTROPHILS 63.6 % (39-80); PLATELET COUNT 333 K/uL (140-440); RDW 17.3 (10.5-15.0)
--- NOTE | 2023-07-05 05:40 | NUR ---
Patient awake. Requested and given pain medication. Contious puse ox remains >92%. patient on 2l/nc while sleeping. VS - Temp 100.5 patient given 650mg tylenol. ceja intact with adequate U.O and bag sevured below level of bed. right BKA dressing intact, clean and dry. IV infusing at 100/h. Patient continues resting, lights out, call light within reach.
[2023-07-05 05:57] LABS: ALBUMIN 1.6 g/dL (3.4-5.0); ALBUMIN/GLOBULIN RATIO 0.39 (1.1-2.4); ANION GAP 13.8 (7-21); BILIRUBIN, TOTAL 0.4 ng/dL (0.2-1.0); BUN/CREATININE RATIO 11.32 (6.0-28.6); CALCIUM 7.3 mg/dL (8.5-10.1); CREATININE, SERUM 0.53 mg/dL (0.55-1.02); POTASSIUM 3.8 mmol/L (3.5-5.1); PROTEIN, TOTAL 5.7 g/dL (6.4-8.2)
--- NOTE | 2023-07-05 07:32 | NUR ---
RECIEVED REPORT FROM NURSE. PT IS CURRENTLY RESTING WITH EYES CLOSED AND EVEN UNLABORED BREATHING NOTED. NO CARES NEEDED AT THIS TIME. CALL LIGHT WITHIN REACH
--- NOTE | 2023-07-05 08:36 | NUR ---
pt is awake eating breakfast. tolerating food well as well as meds. no other cares needed or requested at this time call light within reach
--- NOTE | 2023-07-05 09:49 | NUR ---
pt called and said she was in 6/10 pain and requested a pain med. pain med given. no other cares needed or requested at this time call light within reach
--- NOTE | 2023-07-05 11:25 | NUR ---
rounded on pt and pt requested ice water. currently in room with a friend. no other cares needed or requested at this time call light within reach
[2023-07-05 13:54] LABS: ABO A; ANTIBODY SCREEN NEGATIVE; IS CROSSMATCH COMPATIBLE; RH POSITIVE
[2023-07-05 13:55] LABS: ABO A; RH POSITIVE
--- NOTE | 2023-07-05 16:20 | NUR ---
FIRST UNIT OF PRBCs STARTED AT 1602, AT 15 MINUTE CHECK TEMP INCREASE FROM 98.1 TO 100.3. INFUSION STOPPED, BLOOD AND TUBING DISCONNECTED FROM PATIENT. ORDERED MAINTENANCE FLUIDS STARTED WITH NEW TUBING. PT DENIES FURTHER REACTION SYMPTOMS. BLOOD PRESSURE 149/57, HEART RATE 86, RESP RATE 16, O2 94% ON RA. LAB NOTIFIED. DR FREY NOTIFIED, NO NEW ORDERS AT THIS TIME.
--- NOTE | 2023-07-05 17:00 | NUR ---
JUAN JONES NOTIFIED OF POSSIBLE TRANSFUSION REACTION WITH BLOOD ADMINISTRATION.
--- NOTE | 2023-07-05 17:15 | NUR ---
SPOKE WITH DR FREY REGARDING SECOND UNIT OF BLOOD, VERBAL ORDER TO PRE MEDICATE WITH BENADRYL 25 MG AND 650MG TYLENOL PRIOR TO BLOOD ADMINISTRATION. ORDERS PLACED.
--- NOTE | 2023-07-05 17:57 | NUR ---
PT TEMP 101.7, CALLED DR FREY. ORDERS FOR BLOOD CULTURE, CBC, REMOVE GALE CATHETER, AND UA. UPDATED JUAN BURNS ON PLAN OF CARE.
[2023-07-05 18:41] LABS: HEMOGLOBIN 7.2 g/dL (12.0-18.0); NEUTROPHILS 68.6 % (39-80)
[2023-07-05 18:52] LABS: EOSINOPHILS 0.6 % (0-6); LYMPHOCYTES 22.5 % (24-44); MCH 24.7 (27-36); MCHC 31.4 g/dl (30-36); MCV 78.9 fl (81-99); MONOCYTES 7.3 % (0-12); PLATELET COUNT 338 K/uL (140-440); RBC 2.91 M/ul (4.3-5.7); RDW 17.3 (10.5-15.0)
--- NOTE | 2023-07-05 19:10 | NUR ---
Blood administration started. pre vitals taken. passing off to second shift supervisor nurse.
--- NOTE | 2023-07-05 19:20 | NUR ---
RECEIVED REPORT FROM DAY SHIFT RN. PATIENT IS RESTING IN BED. DAY SHIFT RN AND FLOAT RN AT BEDSIDE TO MONITOR START OF BLOOD TRANSFUSION. NO NEEDS NOTED. CALL LIGHT IN REACH.
--- NOTE | 2023-07-05 19:32 | NUR ---
PT RECEIVING BLOOD AT THIS TIME. PT HAS NOT HAD ANY SIGNS OR SYMPTOMS OF A TRANSFUSION REACTION IN THE FIRST 15 MINUTES. VS COMPLETED. ICE WATER PROVIDED AND ROOM CLEANED UP. PT STATES NO OTHER NEEDS AT THIS TIME. CALL LIGHT IN REACH.
--- NOTE | 2023-07-05 21:03 | NUR ---
PATIENT IS RESTING IN BED WITH EYES CLSOED, CPOX READINGS ARE WNL. PATIENTS BLOOD TRANSFUSING PER ORDER. NO S/SX OF REACTION NOTED.
--- NOTE | 2023-07-05 21:45 | NUR ---
PATIENTS VITALS TAKEN AND RECORDED. PATIENT STARIGHT CATH PER ORDER AND SNET TO LAB. PATIENTS OM MEDS GIVEN PER ORDER. PATIENT REPSOTIONED IN BED. PATIENTS BLOOD TARNSFUSING PER ORDER. PATIENT ASSESMENT COMPLETED. PATIENTS RLE ELEVATED ON PILLOW. PATIENT DENIES ANY FURTHER NEEDS AT THIS TIME. CALL LIGHT IN REACH.
[2023-07-05 22:02] LABS: BILIRUBIN, URINE NEGATIVE (negative); BLOOD/HGB, URINE TRACE-I (Negative); KETONE, URINE NEGATIVE (Negative); LEUK ESTERASE, URINE NEGATIVE (negative); NITRITE, URINE NEGATIVE (negative); PH, URINE 6.5 (5-7)
[2023-07-05 22:11] LABS: CRYSTALS, URINE NONE SEEN (0-1+)
[2023-07-05 22:12] LABS: BACTERIA, URINE RARE /hpf (negative); CASTS, URINE NONE SEEN \\lpf; COLLECTION TYPE, URINE CLEAN CATCH; REFLEX CULTURE, URINE No (No)
[2023-07-05 22:13] LABS: EPITHELIAL CELLS, URINE NS /lpf (0-1+)
--- NOTE | 2023-07-05 22:29 | NUR ---
PATIENT IS RESTING IN BED. PATIENT RATES PAIN AT AN 8/10 IN RLE, PRN MEDICATION GIVEN PER ORDER. PATIENTS BLOOD COMPLETED TRANSFUSING. VITALS TAKEN AND RECORDED. NO S/SX OF A REACTION NOTED. PATIENT DENIES ANY FURTHER NEEDS. CALL LIGHT IN REACH.
[2023-07-06] VITALS (9 sets, daily range): BP systolic 91–157; BP diastolic 52–64
--- NOTE | 2023-07-06 00:04 | NUR ---
PATIENT REPOSITIONED WITH PILLOWS UNDER BOTH HIPS. PATIENT DENIES ANY PAIN. PATIENT DENIES ANY NEEDS. CALL LIGHT IN REACH. CPOX IN USE. IV INFUSING PER ORDE.R
--- NOTE | 2023-07-06 02:55 | NUR ---
PATIENT ASSISTED TO THE C A 2PA W/FWW. PATIENT ABLE TO VOID. PATIENT IS BACK IN BED RESTING. PATIENT HAD BOOT ON LLE WHEN UP. PATIENT REPOSITIONED IN BED. PILLOW UNDER RIGHT HIP. PATIENT HAS SCD ON LLE. PATIENT HAS RLE ELEVATED ON PILLOW. PATIENT IS ON RA AND CPOX IN USE. PATIENTS IV INFUSING PER ORDER. PATIENT RATES PAIN AT A 5/10, PRN PAIN MEDICATION GIVEN PER ORDER. PATIENT DENIES ANY FURTHER NEEDS. CALL LIGHT IN REACH.
--- NOTE | 2023-07-06 04:13 | NUR ---
PATIENT IS RESTING IN BED WITH EYES CLOSED, CPOX READINGS ARE WNL. CALL LIGHT IN REACH. IV INFUSING PER ORDER.
[2023-07-06 05:24] LABS: BASOPHILS 1.2 % (0-2); EOSINOPHILS 0.8 % (0-6); HEMATOCRIT 24.3 % (35.0-50.0); HEMOGLOBIN 7.9 g/dL (12.0-18.0); LYMPHOCYTES 21.3 % (24-44); MCH 25.7 (27-36); MCHC 32.4 g/dl (30-36); MCV 79.3 fl (81-99); MONOCYTES 8.4 % (0-12); NEUTROPHILS 68.3 % (39-80); PLATELET COUNT 288 K/uL (140-440); RBC 3.06 M/ul (4.3-5.7); RDW 17.1 (10.5-15.0)
[2023-07-06 05:40] LABS: ALBUMIN 1.6 g/dL (3.4-5.0); ALBUMIN/GLOBULIN RATIO 0.38 (1.1-2.4); BILIRUBIN, TOTAL 0.8 ng/dL (0.2-1.0); BUN/CREATININE RATIO 12.76 (6.0-28.6); CALCIUM 7.4 mg/dL (8.5-10.1); CREATININE, SERUM 0.47 mg/dL (0.55-1.02); PROTEIN, TOTAL 5.8 g/dL (6.4-8.2)
--- NOTE | 2023-07-06 06:44 | NUR ---
PATIENTS VITALS TAKEN AND RECORDED. PATIENTS INTAKE AND OUTPUT RECORDED. PATIENT REPORTS 5/10 PAIN, PRN PAIN MEDICATION GIVEN PER ORDER. PATIENT HAS SCD IN LLE. PATIENTS IV IS NO LONGER PATENT. FLOAT RN IN ROOM TO START IV.
--- NOTE | 2023-07-06 07:00 | NUR ---
20G 1.75" USIV PLACED IN RFA, 1 ATTEMPT. 1CM DEPTH. PT TOLERATED WELL. GOOD BLOOD RETURN AND FLUSHED WELL. PT STATES NO OTHER NEEDS. CALL LIGHT IN REACH.
--- NOTE | 2023-07-06 07:05 | NUR ---
REPORT RECEIVED FROM CHIEF FUNDRAISING OFFICER RN SIVAN. PATIENT IS SITTING UPRIGHT IN BED AND STATED NO FURTHER NEEDS AT THIS TIME. PATIENT CALL LIGHT AND PERSONAL BELONGINGS ARE WITHIN REACH.
--- NOTE | 2023-07-06 08:56 | NUR ---
PATIENT AMBULATES TO THE BEDSIDE COMMODE WITH A FRONT WHEELED WALKER AND 2 PERSON ASSIST. PATIENT ON BEDSIDE COMMODE AND ABLE TO VOID. PATIENT WITH MODERATE ASSIST TO GET FROM THE BEDSIDE COMMODE TO THE RECLINER. PATIENT STATED NO FURTHER NEEDS AT THIS TIME. CALL LIGHT AND PERSONAL BELONGINGS ARE WITHIN REACH.
--- NOTE | 2023-07-06 09:00 | NUR ---
0800 AND 0900 MEDICATIONS ADMINISTERED PER THE EMAR. PATIENT FULL ASSESSMENT COMPLETE AND DOCUMENTED IN THE CHART. PATIENT IS SITTING UPRIGHT IN THE RECLINER WITH THE BOOT ON THE LEFT LOWER EXTREMITY IN PLACE. LUNG SOUNDS ARE CLEAR IN ALL LUNG ARECHIGA BILATERALLY. PATIENT ON ROOM AIR. PATIENT WITH NORMAL S1 AND S2. RADIAL PULSES ARE STRONG BILATERALLY. IV SITE IS CLEAN, DRY, AND INTACT. NEW BAG OF 1/2 NS IS INFUSING AT THIS TIME. PATIENT BOWEL TONES ARE ACTIVE IN ALL FOUR QUADRANTS. NO PAIN OR TENDERNESS NOTED IN THE ABDOMINAL REGION. PATIENT STATED PAIN OF 4/10 AND NOT REQUESTING PAIN MEDICATIONS. RBKA DRESSING IS CLEAN, DRY, AND INTACT. NO DRAINAGE NOTED ON THE DRESSING. LEFT LOWER EXTREMITY DRESSING IS CLEAN, DRY, AND INTACT WELL. NO DRAINAGE ON THE DRESSING NOTED. PATIENT STATED NO FURTHER NEEDS AT THIS TIME. CALL LIGHT AND PERSONAL BELONGINGS ARE WITHIN REACH.
--- NOTE | 2023-07-06 09:44 | NUR ---
PATIENT IS WORKING WITH PHYSICAL THERAPY AT THIS TIME.
--- NOTE | 2023-07-06 11:08 | NUR ---
PRN OXYCODONE AND TYLENOL ADMINISTERED PER THE EMAR FOR PAIN OF 5/10 AND A TEMPERATURE OF 100.1F. PATIENT WITH A VISITOR AT THE BEDSIDE. PATIENT FINISHED WORKING WITH PT AND IS SITTING UPRIGHT IN THE RECLINER. PATIENT STATED NO FURTHER NEEDS AT THIS TIME. CALL LIGHT AND PERSONAL BELONGINGS ARE WITHIN REACH.
--- NOTE | 2023-07-06 12:15 | NUR ---
PATIENT 1200 INSULIN DOSE ADMINISTERED PER THE EMAR. PATIENT WITH VISITOR AT THE BEDSIDE. PATIENT STATED PAIN IS NOW 2/10 AFTER RECEIVING THE PAIN MEDICATION. PATIENT WITH KUNCH TRAY IN PLACE. PATIENT STATED NO FURTHER NEEDS AT THIS TIME. CALL LIGHT AND PERSONAL BELONGINGS ARE WITHIN REACH.
--- NOTE | 2023-07-06 13:16 | NUR ---
PATIENT ANCEF ADMINISTERED PER THE EMAR. PATIENT TOLERATED WELL. PATIENT WITH VISITOR AT THE BEDSIDE. PATIENT STATED NO FURTHER NEEDS AT THIS TIME. CALL LIGHT AND PERSONAL BELONGINGS ARE WITHIN REACH.
--- NOTE | 2023-07-06 15:30 | NUR ---
PATIENT UP TO THE BEDSIDE COMMODE WITH FWW AND 2 PA. PATIENT ABLE TO VOID 600 ML. BLOOD PRESSURE TAKEN AGAIN AND IT WAS 129/69 WITH A MAP OF 76. PATIENT PAIN IS 3/10 AND REQUESTING PAIN MEDICATION AT THIS TIME. DRESSING WITH SEROUS DRAINAGE ON THE DRESSING DUE TO BEING IN THE DEPENDENT POSITION. DRESSING REINFORCED WITH ABD PAD AND SUNSHINE WRAP. IV SITE IS CLEAN, DRY, AND INTACT. IV FLUIDS ARE RUNNING CONTINUOUSLY. PATIENT IS NOW SITTING UPRIGHT IN THE RECLINER. RIGHT LOWER EXTREMITY IS ELEVATED AND RESTING ON A PILLOW WITH A CHUX UNDERNEATH. PATIENT STATED NO FURTHER NEEDS AT THIS TIME. CALL LIGHT AND PERSONAL BELONGINGS ARE WITHIN REACH.
--- NOTE | 2023-07-06 17:32 | NUR ---
PATIENT AMBULATED TO THE BEDSIDE COMMODE WITH FWW AND STAND BY ASSIST. PATIENT VOIDED 650 ML. PATIENT TOLERATED WELL. PATIENT THEN MOVED BACK TO THE BED. RIGHT LOWER EXTREMITY IS ELEVATED ON ONE PILLOW WITH A CHUX UNDERNEATH. PATIENT DINNER TRAY REMOVED FROM THE PATIENT ROOM. PATIENT INTAKE AND OUTPUT VALUES ARE DOCUMENTED IN THE CHART. PATIENT STATED NO FURTHER NEEDS AT THIS TIME. CALL LIGHT AND PERSONAL BELONGINGS ARE WITHIN REACH.
--- NOTE | 2023-07-06 18:22 | NUR ---
PATIENT IS LYING IN BED WITH EYES CLOSED AND RESPIRATIONS ARE EVEN AND UNLABORED. PATIENT CALL LIGHT AND PERSONAL BELONGINGS ARE WITHIN REACH.
--- NOTE | 2023-07-06 21:31 | NUR ---
PATIENTS VITALS TAKEN AND RECORDED. PATIENT DENIES THE NEED TO VOID. PATIENTS OM MEDS GIVEN PER ORDER. PATIENTS IV INFUSING PER ORDER. PATIENT RATES PAIN AT A 7/10, PRN PAIN MEDICATION PER ORDER. PATIENT REPOSITIONED IN BED. PATIENT ASSESMENT COMPLETED. PATIENT HAS NOTED SEROUS DRAINAGE FROM RLE. DRESSING IS INTACT. PATIENT RAEMINS ON RA AND CPOX IN USE. PATIENT DENIES ANY FURTHER NEEDS. CALL LIGHT IN REACH.
--- NOTE | 2023-07-06 22:10 | NUR ---
PATIENTS PULSE OX ALARMING. FINGER BOX TOE STITCHER PULSE OX REPLACED. PATIENT CONTNIUES TO HAVE AN OXYGEN SATURATION OF 84%. PATIENT PLACED ON 1L IV NC. PATIENT DENIES ANY NEEDS. CALL LIGHT IN REACH. IV INFUSING PER ORDER.
--- NOTE | 2023-07-06 23:10 | NUR ---
PATIENT ASSISTED TO THE BSC A 2PA W/FWW. PATIENT ABLE TO VOID. PATIENT IS BACK IN BED RESTING. PATIENT DENIES ANY FURTHER NEEDS. CALL LIGHT IN REACH. IV INFUSING PER ORDER. CPOX IN USE. PATIENT ON RA AT THIS TIME.
[2023-07-07] VITALS (10 sets, daily range): BP systolic 130–150; BP diastolic 58–72
--- NOTE | 2023-07-07 00:13 | NUR ---
PATIENT IS RESTING IN BED WITH EYES CLSOED, CPOX READINGS ARE WNL. PATIENT IS ON RA. PATIENT HAS RLE ELEVATED ON PILLOW. PATIENTS KRISH LIGHT IN REACH. IV INFUSING PER ORDER.
--- NOTE | 2023-07-07 02:07 | NUR ---
PATIENT IS RESTING IN BED RLE ELEVATED ON PILLOW. PATIENT REPORTS 8/10 PAIN, PRN PAIN MEDICATION GIVEN PER ORDER. PATIENT REPOSITIONED IN BED. PATIENT DENIES ANY FURTHER NEEDS. CALL LIGHT IN REACH. IV INFUSING PER ORDER.
--- NOTE | 2023-07-07 04:16 | NUR ---
PATIENT IS RESTING IN BED WITH EYES CLOSED, CPOX READINGS ARE WNL. CALL LIGHT IN REACH. IV INFUSING PER ORDER.
[2023-07-07 05:21] LABS: BASOPHILS 1.5 % (0-2); EOSINOPHILS 1.5 % (0-6); HEMATOCRIT 23.4 % (35.0-50.0); HEMOGLOBIN 7.5 g/dL (12.0-18.0); LYMPHOCYTES 23.3 % (24-44); MCH 25.5 (27-36); MCHC 32.1 g/dl (30-36); MCV 79.4 fl (81-99); MONOCYTES 7.9 % (0-12); NEUTROPHILS 65.8 % (39-80); PLATELET COUNT 311 K/uL (140-440); RBC 2.95 M/ul (4.3-5.7); RDW 17.3 (10.5-15.0)
[2023-07-07 05:36] LABS: ALBUMIN 1.6 g/dL (3.4-5.0); ALBUMIN/GLOBULIN RATIO 0.39 (1.1-2.4); ANION GAP 12.9 (7-21); BILIRUBIN, TOTAL 0.5 ng/dL (0.2-1.0); BUN/CREATININE RATIO 10.2 (6.0-28.6); CALCIUM 7.4 mg/dL (8.5-10.1); CREATININE, SERUM 0.49 mg/dL (0.55-1.02); POTASSIUM 3.9 mmol/L (3.5-5.1); PROTEIN, TOTAL 5.7 g/dL (6.4-8.2)
--- NOTE | 2023-07-07 06:13 | NUR ---
PATIENT REPOSITIONED IN BED. PATIENTS VITALS TAKEN AND RECORDED. INTAKE AND OUTPUT RECORDED. AM MEDS PER ORDER. PATIENT RATES PAIN AT A 6/10, PRN MEDS PER ORDER. PATIENTS IV INFUSING PER ORDER. PATIENT HELENA ANY FURTHER NEEDS. CALL LIGHT IN REACH. PATIENT DENIES THE NEED TO VOID AT THIS TIME.
--- NOTE | 2023-07-07 06:57 | OR ---
[facility] [address], [place] [address] Signed DATE OF OPERATION: 07/04/2023 SURGEON: Yg Means MD PREOPERATIVE DIAGNOSIS: Guillotine right BKA. POSTOPERATIVE DIAGNOSIS: Guillotine right BKA. PROCEDURE PERFORMED: Irrigation and debridement right BKA stump, skin, subcutaneous tissue and muscle. BRAKE OPERATOR HEAVY DUTY: Emily Garrett PA-C. Emily was present and critical for all portions of procedure. ANESTHESIA: Sedation. BLOOD LOSS: Minimal. 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 The guillotine amputation stump was washed out and debrided and packed with Betadine soaked sponges. She was then taken to the floor and kept on IV antibiotics. She was brought back today for wound inspection and possible closure. Risks, benefits, and alternatives were discussed with her at length and she understands, wished to proceed. DESCRIPTION OF PROCEDURE: Once consent was obtained, she was taken to the operating room. After adequate anesthesia, she was placed on operating room table. The leg was prepped and draped in a standard sterile fashion. The muscle all appeared to be viable. There was still fluid in the muscle posteriorly and in the intermuscular planes posteromedially. It was much less than the last time, however, I did not feel that it was quite clean enough for us to closed it. We then debrided the muscle and subcutaneous tissue. This was done sharply by knife. The bleeders were then cauterized as we went. The entire wound was then pulse lavaged with Betadine pulsed investigative assistant and normal saline pulse investigative assistant. We Electronically Signed By: YG MEANS MD 07/07/23 0657 PATIENT NAME: JOSE COSTA OPERATIVE REPORT DATE OF : 70 REPORT #: [id number] PHYSICIAN: YG MEANS MD PCP: MADHU CAST MD REPORT IS CONFIDENTIAL AND NOT TO BE RELEASED WITHOUT AUTHORIZATION [facility] [address] [facility] [place] [address] Signed then packed the two areas of deepest penetration with a single Kerlix sponge. The remainder of the wound was dressed with wet Kerlix sponges followed by dry Kerlix, ABDs and Kerlix gauze. This was overwrapped using an Hernán wrap. She was taken to the recovery room in satisfactory condition. All sponge, needle, and instrument counts were correct. Yg Means MD BA/MODL /[id number] Copies: ~ Electronically Signed By: YG MEANS MD 07/07/23 0657 PATIENT NAME: JOSE COSTA OPERATIVE REPORT DATE OF : 70 REPORT #: [id number] PHYSICIAN: YG MEANS MD PCP: MADHU CAST MD REPORT IS CONFIDENTIAL AND NOT TO BE RELEASED WITHOUT AUTHORIZATION
--- NOTE | 2023-07-07 07:00 | NUR ---
REPORT RECEIVED FROM FIRE RANGER RN SIVAN. PATIENT IS LYING IN BED WITH EYES CLOSED AND RESPIRATIONS ARE EVEN AND UNLABORED. PATIENT CALL LIGHT AND PERSONAL BELONGINGS ARE WITHIN REACH.
--- NOTE | 2023-07-07 08:00 | NUR ---
Two person assist with pivot and FWW to commode. Pt did well. Pt requested when being assisted to not have her arm held, it makes it harder for her to stand up. Rn aware. Pt requested to sit up on side of bed. Call light within reach, bed in lowest position. No other needs at this time
--- NOTE | 2023-07-07 08:19 | NUR ---
PT BACK TO BED FROM BEDSIDE COMMODE WITH FWW AND STANDBY ASSIST. PT VOIDS 1000 ML CLEAR URINE. PT SITS AT BEDSIDE WITH BEDSIDE TABLE IN FRONT OF HER AND REQUESTS TO PLAY ON HER PHONE. CALL LIGHT GIVEN.
--- NOTE | 2023-07-07 10:04 | NUR ---
PATIENT 0800 AND 0900 MEDICATIONS ADMINISTERED BY LUIS CONTEH PER THE EMAR. FULL ASSESSMENT COMPLETE AND DOCUMENTED IN THE CHART. PATIENT WITH COMPLAINTS OF 3/10 PAIN IN THE RIGHT LOWER EXTREMITY. PATIENT REQUESTS PRN PAIN MEDICATION ONCE IT IS AVAILABLE IN THE EMAR. PATIENT LUNG SOUNDS ARE CLEAR IN ALL LUNG ARECHIGA BILATERALLY. PATIENT IS ON ROOM AIR WITH A CPOX AT THE BEDSIDE AND ON. PATIENT IV SITE IS CLEAN, DRY, AND INTACT. IV SITE FLUSHES WELL WITH NORMAL SALINE. IV MAINTENANCE FLUIDS INFUSING AT THIS TIME. CARDIAC ASSESSMENT WITH NORMAL S1 AND S2. RADIAL PULSES ARE STRONG BILATERALLY. BOWEL TONES ARE ACTIVE IN ALL FOUR QUADRANTS. PATIENT NPO FOR SURGERY THIS AFTERNOON. PATIENT WITH HEEL/FOOT BOOT ON THE LEFT LOWER EXTREMITY. PATIENT RBKA DRESSING DRY AND INTACT. SEROUS DRAINAGE NOTED ON THE CHUX UNDERNEATH THE RIGHT LOWER EXTREMITY THAT IS DRY. PATIENT RIGHT LOWER EXTREMITY IS ELEVATED ON A PILLOW. PATIENT LR WITH STRAIGHT TUBING IS IN THE ROOM AND READY FOR THE OR. PATIENT STATED NO FURTHER NEEDS AT THIS TIME. CALL LIGHT AND PERSONAL BELONGINGS ARE WITHIN REACH.
--- NOTE | 2023-07-07 10:15 | NUR ---
ASSESSMENT COMPLETE. PT HAS NO REQUESTS OR COMPLAINTS AT THIS TIME. INFORMED PT OF OR TIME AND PREP PLAN FOR TODAY.
--- NOTE | 2023-07-07 11:24 | NUR ---
STOPPED IN TO CHECK ON PATIENT. PATIENT RESTING, SO AT THE BEDSIDE. WILL CHECK ON PATIENT TOMORROW AFTER SURGERY.
--- NOTE | 2023-07-07 11:29 | NUR ---
PATIENT IS LYING IN BED WITH A VISITOR AT THE BEDSIDE. PATIENT UPDATED ON THE PLAN OF CARE FOR THE DAY. PATIENT STATED NO FURTHER NEEDS AT THIS TIME. CALL LIGHT AND PERSONAL BELONGINGS ARE WITHIN REACH.
[2023-07-07 11:55] LABS: RBC, LEUKOREDUCED 20212310861400G; RBC, LEUKOREDUCED 20212311924500N
--- NOTE | 2023-07-07 12:05 | NUR ---
PATIENT TAKEN TO THE OR EARLIER THAN EXPECTED. CHG WIPE DOWN NOT COMPLETE PRIOR TO LEAVING THE ROOM. SANDRO Dumont RN NOTIFIED OF WIPE DOWN INCOMPLETE. PATIENT VOID IN THE BEDSIDE COMMODE PRIOR TO LEAVING.
--- NOTE | 2023-07-07 15:42 | NUR ---
PATIENT ARRIVED TO THE FLOOR FROM THE OR AT 1530. REPORT RECEIVED FROM LUIS CHEUNG. PATIENT WITH PAIN OF 3/10 IN THE GROIN AREA. VITAL SIGNS TAKEN AND DOCUMENTED IN THE CHART. PATIENT IS LYING IN BED WITH EYES CLOSED. RESPIRATIONS ARE EVEN AND UNLABORED. CALL LIGHT AND PERSONAL BELONGINGS ARE WITHIN REACH.
--- NOTE | 2023-07-07 15:56 | NUR ---
PATIENT FULL ASSESSMENT COMPLETE AND DOCUMENTED IN THE CHART BY LUIS CONTEH. PATIENT STATED PAIN OF 3/10 IN THE GROIN AREA AFTER RECEIVING A BLOCK. PATIENT WITH AN ICE PACK IN PLACE. PATIENT LUNG SOUNDS ARE CLEAR BILATERALLY IN ALL LUNG ARECHIGA. PATIENT IS ON 3 L NASAL CANNULA AND A CPOX IS IN PLACE AND AT THE BEDSIDE. PATIENT IS ALERT AND ORIENTED. PATIENT WITH NORMAL S1 AND S2 ON AUSCULTATION. RADIAL PULSES ARE STRONG BILATERALLY. BOWEL TONES ARE ACTIVE IN ALL FOUR QUADRANTS. FRESH CUP OF ICE WATER IS AT THE PATIENTS BEDSIDE. PATIENT WITH NO SENSATION THE RIGHT LOWER EXTREMITY. PATIENT FIRST SET OF POST OP VITAL SIGNS ARE DOCUMENTED IN THE CHART. SURGICAL DRESSING IS CLEAN, DRY, AND INTACT. IV 1/2 NS MAINTENANCE FLUIDS ARE INFUSING AT THIS TIME. IV SITE IN THE LEFT ARM IS CLEAN, DRY, AND INTACT AND FLUSHED WELL WITH NORMAL SALINE. SCD IS ON THE LEFT LOWER EXTREMITY AT THIS TIME. PATIENT WITH COMPLAINTS OF HUNGER AND THIRST. PATIENT STATED NO FURTHER NEEDS AT THIS TIME. CALL LIGHT AND PERSONAL BELONGINGS ARE WITHIN REACH.
--- NOTE | 2023-07-07 16:12 | NUR ---
07/07/23 1612 Jovita Bloom 1424- PT ARRIVES TO PACU, SEMI WOOD POSITION, NON REACTIVE TO STIMULUS. O2 AT 6L PER MASK, LR INFUSING TO LFA IV. DRESSIGN TO RIGHT LEG, CDI. ABD SOFT, NON DISTENDED. ALL MONITORS IN PLACE. 1430- PT STARTING TO REACT TO VERBAL AND TACTILE STIMULUS, BUT DOESN'T OPEN EYES OR VERBALIZE. 1435- PT IS VERY DROWSY BUT STATES "I THOUGHT I HAD A BLOCK". PT C/O 9/10 PAIN TO THE TOP AND BACK OF STUMP. REESE DASILVA NOTIFIED. ASSESSED PT, PLAN TO REBLOCK. WILL GIVE IV PAIN MEDICATION PER ORDERS WHILE WAITING. 1442- PT MEDICATED WITH 50 MCG OF FENTANYL FOR 10/10 PAIN WHILE AWAITING TO HAVE RIGHT LEG NERVES REBLOCKED. PT VERY DROWSY AND ENCOURAGED TO CONTINUE TAKING DEEP BREATHS. 1508- SATS 98-99% ON 6L PER MASK WHILE HAVING BLOCKS PLACED. MASK IS UNCOMFORTABLE TO PT, WILL MOVE TO ROOM AIR AND CONTINUE TO MONITOR. WILL USE NC IF O2 NEEDED. 1515- PT HOLDS BREATH DURING EPISODES OF PAIN, SATS FROP TO 84% ON ROOM AIR. ENCOURAGED TO TAKE DEEP BREATHS AND NOT TO HOLD BREATH. PT FOLLOWS COMMANDS AND SATS IMPROVE TO 89%. 3L PER NC APPLIED. 1520- PT REPORTS NO PAIN AFTER HAVING NEW BLOCKS AND FENTANYL. NO NAUSEA, OR OTHER CONCERNS. PT RESTING INTERMITTENTLY. WILL TAKE PT BACK TO MED/SURG. 1530- PT BACK TO ROOM 122 ON MED/SURG VIA BED. IV TO LFA SALINE LOCKED. PT DROWSY, BUT ANSWERS ALL QUESTIONS APPROPRIATELY. DRESSING IN PLACE, CDI, ASSESSED WITH TANIA RN AND YADY RN AT BEDSIDE. O2 AT 3L NC REMAINS IN PLACE. BED PLUGGED IN. REPORT TO TANIA RN AND YADY RN AT BEDSIDE. CARE OF PT TURNED OVER AT THIS TIME.
--- NOTE | 2023-07-07 16:42 | NUR ---
DRSG TO RLE CDI. PT ON BEDPAN. PT STATES PAIN TO R GROIN AREA DOWN TO 06/18. "ICE REALLY HELPED."
--- NOTE | 2023-07-07 16:48 | NUR ---
PATIENT ABLE TO VOID USING THE BED MORRISON. PATIENT NOW SITTING UPRIGHT IN BED AND WATCHING TV. PATIENT TITRATED TO 2 L NC. PATIENT OXYGEN SATURATION BETWEEN 92-96%. PATIENT STATED NO FURTHER NEEDS AT THIS TIME. CALL LIGHT AND PERSONAL BELONGINGS ARE WITHIN REACH.
--- NOTE | 2023-07-07 17:09 | NUR ---
PT SITTING UP IN BED EATING, AND VISITING WITH . INSULIN GIVEN. O2 PER NC AT 2L WITH SATS AT 94%.
[2023-07-07 17:10] LABS: BASOPHILS 0.3 % (0-2); EOSINOPHILS 0.2 % (0-6); HEMATOCRIT 25.6 % (35.0-50.0); HEMOGLOBIN 8.3 g/dL (12.0-18.0); LYMPHOCYTES 5.7 % (24-44); MCH 25.7 (27-36); MCHC 32.4 g/dl (30-36); MCV 79.2 fl (81-99); MONOCYTES 1.8 % (0-12); PLATELET COUNT 308 K/uL (140-440); RBC 3.23 M/ul (4.3-5.7); RDW 17.4 (10.5-15.0)
--- NOTE | 2023-07-07 17:30 | NUR ---
GEAR LAPPING MACHINE OPERATOR ENTERED ROOM FOR VITALS. PT STATES NO COMPLAINTS IS SITTING UP IN BED AND EATING DINNER. PT REQUESTED MORE ICE WATER. NO OTHER CONCERNS
--- NOTE | 2023-07-07 23:46 | NUR ---
PATIENT USED THE BED MORRISON AND VOIDED EXTRA LARGE AMOUNT UNMEASURED. PATIENT DENIES FURTHER NEEDS AT THIS TIME. CALL LIGHT WITHIN REACH.
[2023-07-08] VITALS (9 sets, daily range): BP systolic 90–140; BP diastolic 45–74
[2023-07-08 05:32] LABS: BASOPHILS 0.3 % (0-2); HEMATOCRIT 26.1 % (35.0-50.0); HEMOGLOBIN 8.3 g/dL (12.0-18.0); LYMPHOCYTES 10.8 % (24-44); MCH 25.2 (27-36); MCHC 31.7 g/dl (30-36); MCV 79.6 fl (81-99); MONOCYTES 3.7 % (0-12); NEUTROPHILS 85.2 % (39-80); PLATELET COUNT 296 K/uL (140-440); RBC 3.28 M/ul (4.3-5.7); RDW 17.3 (10.5-15.0)
[2023-07-08 05:47] LABS: ALBUMIN 1.7 g/dL (3.4-5.0); ALBUMIN/GLOBULIN RATIO 0.35 (1.1-2.4); ANION GAP 14.4 (7-21); BILIRUBIN, TOTAL 0.6 ng/dL (0.2-1.0); BUN/CREATININE RATIO 17.3 (6.0-28.6); CALCIUM 8.4 mg/dL (8.5-10.1); CREATININE, SERUM 0.52 mg/dL (0.55-1.02); POTASSIUM 4.4 mmol/L (3.5-5.1); PROTEIN, TOTAL 6.5 g/dL (6.4-8.2)
--- NOTE | 2023-07-08 07:21 | OR ---
[facility] [address] [place], [place] [address] Signed DATE OF OPERATION: 07/07/2023 SURGEON: Yg Means MD PREOPERATIVE DIAGNOSIS: Guillotine BKA, right. POSTOPERATIVE DIAGNOSIS: Guillotine BKA, right. PROCEDURE PERFORMED: Irrigation and debridement of right BKA stump with delayed primary closure. WAIST PRESSER: Emily Garrett PA-C. Emily was present and critical for all portions of procedure. ANESTHESIA: Spinal. BLOOD LOSS: 100 mL. TOURNIQUET TIME: Zero. BRIEF HISTORY: Jose is a 52-year-old female, who underwent a guillotine below-knee amputation. This showed signs of infection along the fascial planes. 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 Her last washout she was fairly clean, however, I thought another little bit of time and antibiotics would be best. We brought her back today for washout and possible closure. Risks, benefits, and alternatives were discussed at length and she understands and wished to proceed. DESCRIPTION OF PROCEDURE: Once consent was obtained, she was taken to the operating room. After adequate anesthesia, she was placed on the operating room table. The prior dressing was removed as was the packing. The leg was then prepped and draped in a standard sterile fashion. The stump and muscle looked quite clean. There was no fluid in the tissues. The muscle was debrided back to allow better contour of the stump. The bleeders were cauterized Electronically Signed By: YG MEANS MD 07/08/23 0721 PATIENT NAME: IGOR,JOSE MACY OPERATIVE REPORT DATE OF : 70 REPORT #: [id number] PHYSICIAN: YG MEANS MD PCP: MADHU CAST MD REPORT IS CONFIDENTIAL AND NOT TO BE RELEASED WITHOUT AUTHORIZATION [facility] [address] [place] [id number] Signed with bipolar cautery as we went. Once this was completed, the entire stump and fascia planes were irrigated under pulse lavage using 1 L of Betadine solution followed by normal saline. Once this was completed, the posterior flap was brought up and sutured anteriorly to the periosteum. Prior to this, we did shorten the fibula and tibia and placed bone wax in the ends. The fascia was repaired to itself using #1 Vicryl, subcutaneous tissue with 0 Vicryl and the skin with 2-0 nylon. The wound was then dressed with Allevyn, Kerlix sponges, ABDs and Kerlix gauze. An Hernán wrap was placed over the entire thing. She tolerated the procedure well. All sponge, needle, and instrument counts were correct. Yg Means MD BA/ARIADNAL /[id number] Copies: ~ Electronically Signed By: YG MEANS MD 07/08/23 0721 PATIENT NAME: JOSE COSTA OPERATIVE REPORT DATE OF : 70 REPORT #: [id number] PHYSICIAN: YG MEANS MD PCP: MADHU CAST MD REPORT IS CONFIDENTIAL AND NOT TO BE RELEASED WITHOUT AUTHORIZATION
--- NOTE | 2023-07-08 08:14 | NUR ---
PATIENT UP TO COMMODE WITH 1PA AND FWW. PATIENT DID WELL AND WAS STEADY ON HER LEFT LEG. PATIENT SALINE LOCKED, ROOM AIR SAT 98%.
--- NOTE | 2023-07-08 09:19 | NUR ---
SPOKE WITH PAM AT [facility], NO BED AVALIABLE AT THIS TIME. HE STATES THEY ARE HOPING TO HAVE DISCHARGES THIS WEEK. SPOKE WITH PATIENT AND ADVISED THAT [facility] HAS NO BEDS. PATIENT UPSET STATING "I KNEW THIS WAS GOING TO HAPPEN." PATIENT STATES SHE DOES NOT WANT TO GO OUT OF TOWN TO A FACILITY HER SO WILL HAVE TO TRAVEL TO SEE HER. DISCUSSED PLACEMENT OPTIONS AND I ADVISED I WOULD CALL FOR ROOM AVAILABILTY. PATIENT SECOND CHOICE IS [facility]. CALL PLACED TO SHITAL AT [facility].
--- NOTE | 2023-07-08 09:34 | NUR ---
BISACODYL SUPPOSITORY PLACED. PATIENT IS RESTING IN BED AT THIS TIME.
--- NOTE | 2023-07-08 10:05 | NUR ---
PATIENT VITAL SIGNS AND I/OS DOCUMENTED. PT. EDUCATED ON INCENTIVE SPIROMETER AND TEACH BACK IMPLEMENTED. FRESH ICE WATER PROVIDED. CALL LIGHT LEFT WITHIN REACH. NO OTHER NEEDS AT THIS TIME. SN MATT
--- NOTE | 2023-07-08 10:13 | NUR ---
REFERRED BY LUIS JOHNSON. PT HAD DIFFICULT PHONE CALL WHILE SHE WAS IN ROOM. PT INDICATED NO DESIRE TO DISCUSS. PROVIDED HOPSITALITY; FACILITATED STORY-TELLING; PROVIDED SILENT PRAYER. PT EXPRESSED APPRECIATION.
--- NOTE | 2023-07-08 10:52 | NUR ---
RECVD CALL BACK FROM SHITAL AT [facility], NO BEDS AVAILABLE AT THIS TIME. SPOKE WITH DORA AT [facility], BEDS AVAILABLE THIS WEEK. REFERRAL FAXED.
--- NOTE | 2023-07-08 11:37 | NUR ---
PT STATES PAIN IS DOWN TO A 3/10. STATES SHE IS COMFORTABLE AT THIS TIME. IS REQUESTING TO USE COMMONDE, WILL ASSIST PT.
--- NOTE | 2023-07-08 14:11 | NUR ---
PT SITTING UP IN THE CHAIR WITH LEGS ELEVATED VISITING WITH . NO REQUESTS AT THIS TIME.
--- NOTE | 2023-07-08 14:20 | NUR ---
DR ESCALANTE IN TO SEE PT. ROYAL CHANGED WHILE PT UP IN CHAIR.
--- NOTE | 2023-07-08 15:57 | NUR ---
PT IN TO SEE PT
--- NOTE | 2023-07-08 17:11 | NUR ---
PT SITTING UP IN CHAIR, PAIN MEDICATION GIVEN FOR RLE PAIN. DAFNE RAMOS.
--- NOTE | 2023-07-08 18:19 | NUR ---
PT UP TO COMMODE TO VOID AND THEN TRANSFERRED TO BED WITH SBA AND WALKER. TOLERATED WELL.
--- NOTE | 2023-07-08 21:04 | NUR ---
RESTING WITH NO SIGNS OF DISTRESS. CPOX OFF BY NURSING STAFF.
[2023-07-09] VITALS (9 sets, daily range): BP systolic 100–107; BP diastolic 50–63
--- NOTE | 2023-07-09 00:59 | NUR ---
RESTING ON RA WITH NO SIGNS OF DISTRESS. CPOX OFF BY RN. TAKING OFF RT SERVICE. PLEASE CALL WITH ANY CONCERNS OR O2 USE.
[2023-07-09 06:00] LABS: BASOPHILS 1.8 % (0-2); HEMATOCRIT 22.3 % (35.0-50.0); HEMOGLOBIN 7.1 g/dL (12.0-18.0); MCHC 31.8 g/dl (30-36); MCV 78.8 fl (81-99); MONOCYTES 7.6 % (0-12); NEUTROPHILS 49.6 % (39-80); RBC 2.83 M/ul (4.3-5.7); RDW 17.8 (10.5-15.0)
[2023-07-09 06:25] LABS: ALBUMIN 1.6 g/dL (3.4-5.0); ALBUMIN/GLOBULIN RATIO 0.4 (1.1-2.4); ANION GAP 11.8 (7-21); BILIRUBIN, TOTAL 0.2 ng/dL (0.2-1.0); BUN/CREATININE RATIO 26.08 (6.0-28.6); CALCIUM 8.4 mg/dL (8.5-10.1); CREATININE, SERUM 0.69 mg/dL (0.55-1.02); POTASSIUM 3.8 mmol/L (3.5-5.1); PROTEIN, TOTAL 5.6 g/dL (6.4-8.2)
[2023-07-09 06:40] LABS: PLATELET COUNT 332 K/uL (140-440)
--- NOTE | 2023-07-09 07:20 | NUR ---
REPORT RECEIVED FROM STAFFING MANAGER LUIS COLMENARES. PATIENT IS RESTING WITH EYES CLOSED AND RESPIRATIONS ARE EVEN AND UNLABORED. CALL LIGHT AND PERSONAL BELONGINGS ARE WITHIN REACH.
--- NOTE | 2023-07-09 08:44 | NUR ---
PT UP TO BSC WITH 1PA AND FWW. PT VOIDS 700 MLS OF YELLOW URINE. PT BACK TO BED. SITS UP ON BEDSIDE AND EATS BREAKFAST.
--- NOTE | 2023-07-09 09:01 | NUR ---
PER PAM AT [facility] NO BEDS AVAILABLE THIS WEEK. HOPEFULLY BEDS WILL BE AVAILABLE ON FRIDAY.
--- NOTE | 2023-07-09 09:04 | NUR ---
PATIENT [id number] MEDICATIONS ADMINISTERED PER THE EMAR. PATIENT WITH PAIN OF 3/10 AND REQUESTING HER PRN PAIN MEDICATION DOSE WHEN IT COMES AVAILABLE. PATIENT IS SITTING UPRIGHT AT THE EDGE OF THE BED AND EATING BREAKFAST. PATIENT STATED NO FURTHER NEEDS AT THIS TIME. CALL LIGHT AND PERSONAL BELONGINGS ARE WITHIN REACH.
--- NOTE | 2023-07-09 11:01 | NUR ---
TEXT SENT TO DORA AT [facility] TO CHECK ON REFERRAL STATUS.
--- NOTE | 2023-07-09 11:03 | NUR ---
PATIENT IS SITTING AT THE EDGE OF THE BED AND WORKING WITH PHYSICAL THERAPY. PATIENT STATED NO NEEDS AT THIS TIME.
[2023-07-09 12:03] LABS: BASOPHILS 1.4 % (0-2); EOSINOPHILS 1.2 % (0-6); HEMATOCRIT 23.7 % (35.0-50.0); HEMOGLOBIN 7.5 g/dL (12.0-18.0); LYMPHOCYTES 41.7 % (24-44); MCH 25.3 (27-36); MCHC 31.8 g/dl (30-36); MCV 79.5 fl (81-99); MONOCYTES 7.5 % (0-12); NEUTROPHILS 48.2 % (39-80); PLATELET COUNT 344 K/uL (140-440); RBC 2.98 M/ul (4.3-5.7); RDW 17.8 (10.5-15.0)
--- NOTE | 2023-07-09 12:15 | NUR ---
PATIENT INSULIN AND PRN PAIN MEDICATION ADMINISTERED PER THE EMAR FOR A PAIN RATING OF 6/10. FULL ASSESSMENT COMPLETE AND DOCUMENTED IN THE CHART. PATIENT WITH CLEAR LUNG SOUNDS IN ALL LUNG ARECHIGA BILATERALLY. PATIENT IS ON ROOM AIR AND SITTING UPRIGHT IN THE RECLINER EATING LUNCH. CARDIAC ASSESSMENT WITH NORMAL S1 AND S2 ON AUSCULTATION. BOWEL TONES ARE ACTIVE IN ALL FOUR QUADRANTS. RADIAL PULSES ARE STRONG BILATERALLY AND CAPILLARY REFILL IS LESS THAN 3 SECONDS IN THE UPPER EXTREMITIES. PATIENT IS ALERT AND ORIENTED. PATIENT HAS BOOT ON THE LEFT LOWER EXTRERMITY AT THIS TIME. RIGHT LOWER EXTREMITY SURGICAL DRESSING IS CLEAN, DRY, AND INTACT. IV SITE FLUSHES WELL WITH 10 ML NORMAL SALINE AND IS SALINE LOCKED. WINDOW DRESSING IS CLEAN, DRY, AND INTACT. PATIENT IS AT THE BEDSIDE. PATIENT STATED NO FURTHER NEEDS AT THIS TIME. CALL LIGHT AND PERSONAL BELONGINGS ARE WITHIN REACH.
[2023-07-09 13:02] LABS: ABO A; ANTIBODY SCREEN NEGATIVE; RH POSITIVE
--- NOTE | 2023-07-09 14:18 | NUR ---
PATIENT IS LYING IN THE RECLINER WITH THE LOWER EXTREMITIES ELEVATED. PATIENT WITH PAIN OF 5/10 AT THIS TIME TIME. DRESSING IS CLEAN, DRY, AND INTACT. RLE IS ELEVATED ON A PILLOW. PATIENT BOOT IS ON THE LLE. PATIENT STATED NO FURTHER NEEDS AT THIS TIME. CALL LIGHT AND PERSONAL BELONGINGS ARE WITHIN REACH.
--- NOTE | 2023-07-09 15:17 | NUR ---
PER DORA AT [facility] LAST THEIR LAST BED HAS BEEN FILLED AND THEY WILL NOT HAVE A BED AVAILABLE UNTIL LATE NEXT WEEK. CHART FAXED TO LEANDRO [facility]. PER JESUS AT [facility] THEY ARE NOT CONTRACTED WITH PATIENTS INSURANCE. WILL CONTACT ODD FELLOW AND FAW[facility] AT THE [place].
--- NOTE | 2023-07-09 15:25 | NUR ---
LEFT MESSAGE FOR [facility] IN [place] REGARDING PLACEMENT. ATTEMPTED TO CONTACT [facility], VOICEMAIL FOR DNS FULL. WILL ATTEMPT TO CONTACT AT A LATER TIME.
--- NOTE | 2023-07-09 15:37 | NUR ---
ALEX BOATENG DIRECTOR OF CUSTOMER ACQUISITION AND PATIENT UPDATED REGARDING NO SNIF BED STATUS FOR PLACEMENT AT THIS TIME.
--- NOTE | 2023-07-09 16:19 | NUR ---
PATIENT UP TO BEDSIDE COMMOPDE AND ABLE TO VOID. PATIENT THEN GOT BACK TO THE RECLINER AND REQUESTING PAIN MEDICATIONS. PATIENT STATED NO FURTHER NEEDS AT THIS TIME. CALL LIGHT AND PERSONAL BELONGINGS ARE WITHIN REACH.
--- NOTE | 2023-07-09 19:49 | NUR ---
PATIENT UP TO BSC WITH SBA FWW AND GATE BELT TO VOID. PATIENT BACK TO BED. R STUMP ELEVATED ON PILLOW. PATIENT HAS NO FURTHER NEEDS. CALL LIGHT IN REACH.
[2023-07-10] VITALS: BP 101/57
[2023-07-10 05:50] VITALS: BP 130/69
--- NOTE | 2023-07-10 05:57 | NUR ---
AWAKE, COOP WITH VITALS, UP TO BSC, VOIDED, BACK TO BED. TOLERATED WELL, MEDICATED WITH OXYCODONE 5MG PO PRIOR TOG ETTING UP 12/16 PAIN. RBKA DRESSING CDI, DRESSING L FOOT CDI, USES ORTHO BOOT L FOOT
[2023-07-10 06:11] LABS: BASOPHILS 1.2 % (0-2); EOSINOPHILS 1.9 % (0-6); HEMATOCRIT 25.3 % (35.0-50.0); HEMOGLOBIN 8.1 g/dL (12.0-18.0); LYMPHOCYTES 41.2 % (24-44); MCH 25.5 (27-36); MCV 79.7 fl (81-99); MONOCYTES 7.8 % (0-12); NEUTROPHILS 47.9 % (39-80); PLATELET COUNT 372 K/uL (140-440); RBC 3.17 M/ul (4.3-5.7)
[2023-07-10 06:21] LABS: ANION GAP 12.3 (7-21); BUN/CREATININE RATIO 21.21 (6.0-28.6); CALCIUM 8.7 mg/dL (8.5-10.1); CREATININE, SERUM 0.66 mg/dL (0.55-1.02); POTASSIUM 4.3 mmol/L (3.5-5.1)
--- NOTE | 2023-07-10 07:55 | NUR ---
RECEIVED REPORT FROM LUIS COLMENARES. PT RESTING IN BED WITH EYES CLOSED, RESPIRATIONS EVEN AND UNLABORED. CALL LIGHT WITHIN REACH, ALLOWED TO REST.
--- NOTE | 2023-07-10 09:25 | NUR ---
PT AWAKENS TO RN IN ROOM. PT ABLE TO AMBULATE TO BSC WITH FWW AND GAIT BELT, MINIMAL ASSISTANCE NEEDED, PT WEARING OWN BOOT ON LEFT FOOT DURING AMBULATION. SCDs NOT IN PLACE D/T PT BEING UP TO BSC AND SITTING ON EDGE OF BED FOR BREAKFAST. DRESSINGS ON BLE C/D/I. PT STATES NO FURTHER NEEDS AT THIS TIME, CALL LIGHT WITHIN REACH.
--- NOTE | 2023-07-10 09:25 | NUR ---
CHART FAXED TO [facility] FOR REVIEW .
--- NOTE | 2023-07-10 10:00 | NUR ---
ROUNDED ON PATIENT. PROVIDED PATIENT WITH COFFEE. PATIENT WAS RESTING BY THE SIDE OF THE BED. PATIENT STATES BEING COMFORTABLE. OBTAINED VITALS AND I AND O'S. CALL LIGHT WITHIN REACH. NO FURTHER NEEDS AT THIS TIME
[2023-07-10 10:08] VITALS: BP 142/68
[2023-07-10 13:34] VITALS: BP 129/82
--- NOTE | 2023-07-10 14:29 | NUR ---
SPOKE WITH PATIENT. INFORMED HER NO SNF AVAILABLE YET. ALSO INFORMED HER CHART WAS SENT TO [facility].
--- NOTE | 2023-07-10 15:31 | NUR ---
PHYSICAL THERAPY WORKING WITH PT. CALL LIGHT WITHIN REACH, PT UP TO CHAIR.
--- NOTE | 2023-07-10 16:05 | NUR ---
RECEIVED CALL FROM PAM AT [facility]. WILL BE ABLE TO ACCEPT PATIENT TOMORROW MORNING. WHEELCHAIR VAN SCHEDULED FOR 914 TOMORROW MORNING. PATIENT, DR. GONZALEZ AND Arlette LEIJA, RN/CHARGE NURSE, NOTIFIED.
--- NOTE | 2023-07-10 17:30 | NUR ---
PT REQUESTS DIET SODA, GIVEN. PT STATES NO FURTHER NEEDS AT THIS TIME, CALL LIGHT WITHIN REACH.
[2023-07-10 18:27] VITALS: BP 119/61; BP 129/82
--- NOTE | 2023-07-10 19:15 | NUR ---
SHIFT REPORT RECEIVED FROM DAYSHIFT LUIS GLORIA AT BEDSIDE, pt AWAKE AND RESTING IN RECLINER. ON RA, RR EVEN AND UNLABORED WITH NO DISTRESS. DRESSING TO RLE C/D/I. UNABLE TO ASSESS LLE DRESSING D/T BOOT BEING IN PLACE. pt DENIES NEEDS OR CONCERNS, CALL LIGHT IN REACH.
[2023-07-10 20:07] VITALS: BP 126/63
--- NOTE | 2023-07-10 20:44 | NUR ---
CALL LIGHT ANSWERED, pT UP SBA WITH GAIT BELT AND FWW FROM CHAIR TO BED, CALL LIGHT AND PERSONAL BELONGINGS IN REACH. pT A/OX4, REPORTS PAIN IS CURRENTLY TOLERABLE 2/, DENIES NAUSEA. BT ACTIVE. DRESSING TO BOTH LLE AND RLE C/D/I, BOOT TO LLE REMOVED PER pt REQUEST AT THIS TIME. pt DENEIS NEED TO VOID, VSS. INSULIN SS GIVEN ALONG WITH SCHEDULED MEDICATIONS-SEE EMAR. IV SITE WNL, FLUSHED AND SALINE LOCKED PER POLICY. pt DENIES ADDITIOANL NEEDS OR CONCERNS. WILL CONTINUE TO MONITOR.
[2023-07-10] MEDS ORDERED: CLINDAMYCIN HC300 MG PO (22:33)
[2023-07-10] MEDS ORDERED: OXYCODONE HCL5 MG PO (22:35)
--- NOTE | 2023-07-10 22:43 | NUR ---
ROUNDED ON pt, pt RESTING IN BED WITH EYES CLOSED. ON RA, RR EVEN AND UNLABORED. NO DISTRESS NOTED, CALL LIGHT IN REACH.
--- NOTE | 2023-07-11 01:45 | NUR ---
ROUNDED ON pt, pt AWAKE AND RESTING IN BED. DRESSINGS TO BOTH LLE AND RLE C/D/I. pt DENIES NEEDS OR CONCERNS, DENIES NEED FOR PAIN MEDICATION WHEN OFFERED BY THIS RN. WILL CONTINUE TO MONITOR, CALL LIGHT IN REACH.
--- NOTE | 2023-07-11 03:30 | NUR ---
pt resting in bed with eyes closed, on ra, rr even and unlabored with no distress. call light and other personal belongings in reach.
[2023-07-11 05:25] LABS: BASOPHILS 0.7 % (0-2); EOSINOPHILS 2.2 % (0-6); HEMATOCRIT 24.8 % (35.0-50.0); LYMPHOCYTES 38.3 % (24-44); MCH 25.3 (27-36); MCHC 32.1 g/dl (30-36); MCV 78.7 fl (81-99); MONOCYTES 8.9 % (0-12); NEUTROPHILS 49.9 % (39-80); PLATELET COUNT 338 K/uL (140-440); RBC 3.15 M/ul (4.3-5.7); RDW 17.8 (10.5-15.0)
[2023-07-11 05:45] LABS: ALBUMIN 1.8 g/dL (3.4-5.0); ALBUMIN/GLOBULIN RATIO 0.43 (1.1-2.4); BILIRUBIN, TOTAL 0.4 ng/dL (0.2-1.0); BUN/CREATININE RATIO 18.33 (6.0-28.6); CALCIUM 8.3 mg/dL (8.5-10.1); CREATININE, SERUM 0.6 mg/dL (0.55-1.02)
[2023-07-11 06:30] VITALS: BP 130/72
--- NOTE | 2023-07-11 07:52 | NUR ---
PT SITTING UP ON EDGE OF BED DURING REPORT FROM NIGHT RN. PT STATES PAIN IS IMPROVING AT THIS TIME. (R) BKA DSG APPEARS CDI. (L) BOOT IN PLACE AT THIS TIME. NAC GETTING CBG CHECK THIS MORNING. ALL PT CARE NEEDS MET AT THIS TIME. CALL LIGHT WITHIN REACH. 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
[2023-07-11 08:23] VITALS: BP 130/72
--- NOTE | 2023-07-11 12:37 | NUR ---
DISCHARGE SUMMARY SENT TO [facility]. PATIENT DC'D TO [facility] VIA WHEELCHAIR VAN.
--- NOTE | 2023-07-11 13:45 | NUR ---
Multiple attempts to get clarification of orders for wound care from Dr. Espino. Received signed, written orders at 1230 and sent to [facility]. Later we received a call to not use the wound order for pts amputated leg as Dr. Espino did not do the amputation. I texted Dr. Measn and received a verbal order for pt to leave dressing in place and he will see her Friday in the office and change her dressing. I will call Friday and schedule the appt as their office is closed now. I let PAM at [facility] know and I will text him the time on Friday morning.
--- NOTE | 2023-07-15 08:13 | OR ---
[facility] [address] [place] [address] Signed DATE OF OPERATION: 07/02/2023 SURGEON: Yg Means MD PREOPERATIVE DIAGNOSIS: Infected Charcot foot with osteomyelitis, right. POSTOPERATIVE DIAGNOSIS: Infected Charcot foot with osteomyelitis, right. PROCEDURE PERFORMED: Right guillotine amputation BKA. SUPERVISOR WASH HOUSE: Emily Garrett PA-C. ANESTHESIA: Spinal. BLOOD LOSS: 200 mL. TOURNIQUET TIME: 23 minutes. BRIEF HISTORY: Jose is a 52-year-old insulin-dependent diabetic with poor control. She has Charcot feet on both sides and developed a draining sinus on the lateral aspect of the calcaneus. The irrigation debridement by the eap consultant showed aldo pus. MRI showed osteomyelitis and a new calcaneus fracture from the Charcot arthropathy. Risks and benefits of operative treatment were discussed with her and she understood and wished to proceed. DESCRIPTION OF PROCEDURE: Once consent was obtained, she was taken to the operating room. After adequate anesthesia, she was placed on the operating room table. All downside pressure points were well padded. Hip bump was placed on the right and well-padded proximal thigh tourniquet was placed. The leg was then prepped and draped in a standard sterile fashion. A bag was placed over the foot. The amputation skin incision was then marked out one handsbreadth below the tibial tuberosity. The leg was then Electronically Signed By: YG MEANS MD 07/02/23 0940 PATIENT NAME: JOSE COSTA OPERATIVE REPORT DATE OF : 70 REPORT #: [id number] PHYSICIAN: YG MEANS MD PCP: MADHU CAST MD REPORT IS CONFIDENTIAL AND NOT TO BE RELEASED WITHOUT AUTHORIZATION [facility] [address] [place], [place] [address] Signed exsanguinated using gravity. Tourniquet inflated to 250 mmHg. The anterior portion of the incision was then made all the way through down to the bone. Any significant bleeders were clamped as we went. The incision was then extended medially around the medial half and laterally. The medial half was then extended distally as well. In the posterior medial compartment, the skin incision all of a sudden showed a large gush of purulent material from the posterior compartment. This was cultured and sent to the lab. There was extensive soft tissue fluid in the interfascial planes. The skin incision was carried all the way through. Both fibula and tibia were then transected using the saw and the amputation knife was then used to transect the posterior soft tissues. The foot and foreleg were then passed off the table. At this point, we then proceeded in debriding the soft tissue sharply using Wasserman and rongeurs. The vessels were all identified and tied off using 0 silk stick ties. The nerves were similarly tied off. The tourniquet was then released. There were several small bleeders that were again tied using 0 silk stick ties. The wound was again debrided sharply followed by irrigation with a L of Betadine irrigation followed by 3 L of normal saline. The cavity posterolaterally extended up between the gastroc and soleus to just about the popliteal space. There was aldo purulence and mucopurulent material in this cavity. This again was sharply debrided followed by irrigation. It was then packed with Betadine soaked sponges. The entire wound was then packed with saline soaked sponges and dry Kerlix followed by dry ABDs and roller gauze. This was all covered with an Hernán wrap. She tolerated the procedure well. All sponge, needle, and instrument counts were correct. Yg Means MD BA/MODL /[id number] Copies: ~ Electronically Signed By: YG MEANS MD 07/02/23 0940 PATIENT NAME: JOSE COSTA OPERATIVE REPORT DATE OF : 70 REPORT #: [id number] PHYSICIAN: YG MEANS MD PCP: MADHU CAST MD REPORT IS CONFIDENTIAL AND NOT TO BE RELEASED WITHOUT AUTHORIZATION
== END 2023-07-11 09:15 | DRG 617 ==
LOC: ED 14:07 → MS 17:29 → CCU 17:29 → MS 20:33
PROVIDERS: Emergency Medicine; Family Medicine; Internal Medicine; Specialist; ADMIT Internal Medicine; ATTEND Internal Medicine
PROC: 30233N1 Transfusion of Nonautologous Red Blood Cells into Peripheral Vein, Percutaneous Approach (ICD-10-PCS; 2023-06-28)
PROC: 0Y6H0Z3 Detachment at Right Lower Leg, Low, Open Approach (ICD-10-PCS; principal; 2023-07-02 07:00)
PROC: 0KBS0ZZ Excision of Right Lower Leg Muscle, Open Approach (ICD-10-PCS; 2023-07-04)
PROC: 0KBS0ZZ Excision of Right Lower Leg Muscle, Open Approach (ICD-10-PCS; 2023-07-07)
DX: E11.621 Type 2 diabetes mellitus with foot ulcer (principal); L02.611 Cutaneous abscess of right foot; L03.115 Cellulitis of right lower limb; L97.423 Non-pressure chronic ulcer of left heel and midfoot with necrosis of muscle; M86.8X7 Other osteomyelitis, ankle and foot; E11.65 Type 2 diabetes mellitus with hyperglycemia; L97.529 Non-pressure chronic ulcer of other part of left foot with unspecified severity; G43.909 Migraine, unspecified, not intractable, without status migrainosus; E11.69 Type 2 diabetes mellitus with other specified complication; I25.10 Atherosclerotic heart disease of native coronary artery without angina pectoris; I10 Essential (primary) hypertension; E11.40 Type 2 diabetes mellitus with diabetic neuropathy, unspecified; D63.8 Anemia in other chronic diseases classified elsewhere; M14.672 Charcot's joint, left ankle and foot; Z87.891 Personal history of nicotine dependence; Z98.890 Other specified postprocedural states; Z88.0 Allergy status to penicillin; Z88.8 Allergy status to other drugs, medicaments and biological substances; Z79.2 Long term (current) use of antibiotics; Z79.4 Long term (current) use of insulin; Z79.899 Other long term (current) drug therapy; Z79.84 Long term (current) use of oral hypoglycemic drugs; Z11.52 Encounter for screening for COVID-19
CPT/HCPCS: 01320; 01482; 36415; 36430; 51798; 64445; 64447; 71045; 73610; 73700; 76942; 80048; 80053; 81001; 82553; 83605; 83880; 85025; 85060; 86850; 86900; 86901; 86922; 87040; 87070; 87075; 87205; 87502; 93971; 94760; 94762; 97110; 97161; 97162; 97164; 97166; 97530; 97535; A9270; J0690; J0692; J0735; J0878; J1100; J1200; J1815; J1885; J2001; J2250; J2405; J2704; J2765; J2795; J3010; J7030; J7121; P9016; U0002

== ENCOUNTER 2024-12-15 09:30 | Emergency (ER) | payer OTHER ==
[~2024-12-15] VITALS: Ht 170.2 cm; Wt 111.4 kg
[~2024-12-15 09:30] MED LIST changes: +CLINDAMYCIN HC300 MG PO; +OXYCODONE HCL5 MG PO
[2024-12-15] MEDS ORDERED: PIOGLITAZONE HC45 MG PO (10:34)
[2024-12-15] MEDS ORDERED: LISINOPRIL10 MG PO (10:34)
[2024-12-15] MEDS ORDERED: NOVOLOG FL100 UNIT/1 SUB-Q (10:35)
[2024-12-15] MEDS ORDERED: HYDROCODON-ACE1 EA10 PO (12:10)
[2024-12-15] MEDS ORDERED: IBUPROFEN600 MG PO (12:10)
[2024-12-15] MEDS ORDERED: ONDANSETRON ODT4 MG PO (12:10)
[2024-12-15 12:32] VITALS: BP 165/84
== END 2024-12-15 12:35 | disposition home or self-care (01) ==
LOC: ED 09:30
DX: S42.292A Other displaced fracture of upper end of left humerus, initial encounter for closed fracture (principal); E11.9 Type 2 diabetes mellitus without complications; Z87.891 Personal history of nicotine dependence; Z88.1 Allergy status to other antibiotic agents; Z79.899 Other long term (current) drug therapy; W01.0XXA Fall on same level from slipping, tripping and stumbling without subsequent striking against object, initial encounter
CPT/HCPCS: 73030; 99283